=== PATIENT | male | born 1940 | race Caucasian/White ===

== ENCOUNTER → 2021-11-17 13:34 | Outpatient (CLI) | payer MEDICARE, OTHER, SELFPAY ==
--- NOTE | 2021-11-17 13:42 | DI.CT.S_ITS ---
PROCEDURE: CT LUMBAR SPINE WO CON INDICATIONS: Spinal stenosis, lumbar region without neurogenic TECHNIQUE: Noncontrast 3 mm thick sections acquired from the T12 level to the sacrum. Sagittal and coronal reformats were constructed. For radiation dose reduction, the following was used: automated exposure control. COMPARISON: [facility] [place], CR, XR LUMBAR SPINE 2 OR 3 VIEWS, 11/09/2021, 10:51. FINDINGS: Image quality: Excellent. Bones: There is normal bony alignment. No acute vertebral body compression fractures. No suspicious lytic or blastic bony lesions. No pars defects. Grade 1 retrolisthesis at L1-2 and grade 2 anterior listhesis at L4-5. L5 laminectomy with posterolateral fusion and posterior danay and screw instrumentation good position in at L5-S1. Grade 1 anterior spondylolisthesis present at L5-S1 Thin 1-2 mm lucency around the L5 pedicle screws noted. Well-healed interbody fusion at T10-T11. T12-L1: Disc space narrowing with posterior small osteophyte results in mild central and mild right foraminal stenosis. L1-L2: Disc space narrowing with vacuum disc phenomena and posterior osteophyte results in moderate central stenosis. Severe left and moderate to severe right foraminal stenosis. L2-L3: Disc space narrowing and circumferential disc bulge with hypertrophic facet joints and ligamentum flavum laxity results in moderate central stenosis. Moderate right and severe left foraminal stenosis. L3-L4: Disc space narrowing with posterior disc bulge and osteophyte combined with ligamentum flavum laxity results in moderate central stenosis. Severe left and moderate right foraminal stenosis. L4-L5: Disc space narrowing with vacuum disc phenomena and hypertrophic facet joints present. Decompressive laminectomy present. No central stenosis. Moderate right and severe left foraminal stenosis. L5-S1: Disc space narrowing with vacuum disc phenomena present. With no central stenosis. Moderate bilateral foraminal stenosis Soft tissues: No retroperitoneal masses or hematomas. Visualized aorta is normal in caliber. Atherosclerotic calcification in the abdominal aorta noted without evidence of aneurysm. Multiple diverticula arise from the sigmoid colon without diverticulitis IMPRESSION: 1. Multilevel degenerative disc disease and arthropathy results in varying degrees of central and foraminal stenosis including moderate central and severe left foraminal stenosis at L1-2. 2. L5 laminectomy and posterolateral fusion with danay and screw instrumentation at L5-S1. Periprosthetic lucency around both L5 pedicle screws suggests an element of loosening Approved by: Ric Browne M.D. on 11/17/2021 at 15:03
--- NOTE | 2021-11-17 13:43 | DI.MRI.S_ITS ---
PROCEDURE: MR LUMBAR SPINE WO CON INDICATIONS: Spinal stenosis, lumbar region without neurogenic TECHNIQUE: Noncontrast sagittal T1 spin echo and T2 fast echo, sagittal STIR, and T2 fast spin echo through the lumbar spine. In cases with scoliosis, additional coronal T2 fast spin echo may be performed. COMPARISON: None. FINDINGS: Image quality: Excellent. Alignment and Curvature: There is normal bony alignment. Bone Marrow: Postoperative changes of laminectomy and pedicular screw and danay fixation at L5-S1. Marrow is of normal overall signal. No acute vertebral body compression fractures. There is rightward curvature of the lumbar spine. Spinal Cord: Conus medullaris terminates at the L1 level. Visualized cord demonstrates normal signal and size. Paraspinous Soft Tissues: No paravertebral masses. Bilateral simple renal cysts. T12-L1: Central annular tear with a diffuse disc bulge. No foraminal or central canal stenosis. L1-L2: Loss of the disc space with a diffuse disc bulge and disc osteophytes with facet hypertrophy on the left cause moderate right and severe left foraminal stenosis. The central canal is patent. L2-L3: Diffuse disc bulge and disc osteophytes with facet hypertrophy on the left causes severe left and mild right foraminal stenosis. The central canal has moderate stenosis. 5 mm retrolisthesis at L2-3. L3-L4: Loss of the disc space with a diffuse disc bulge and disc osteophytes with bilateral facet hypertrophy causes severe left and moderate right foraminal stenosis. The central canal has moderate stenosis. L4-L5: Loss of the disc space with a diffuse disc bulge and disc osteophytes with left facet hypertrophy causes severe left and moderate right foraminal stenosis. The central canal is patent. 7 mm anterolisthesis of L4-5. L5-S1: Disc space narrowing with a diffuse disc bulge. The foramina and central canal are patent. L5-S1 is status post pedicular screw and danay fixation. IMPRESSION: 1. Multilevel lumbar spondylosis as above. 2. Moderate central canal stenosis at L2-3 and L3-4. 3. 7 mm anterolisthesis of L4-5. 5 mm retrolisthesis of L2-3. Dictated by: Bj Sarabia M.D. on 11/17/2021 at 14:53 Approved by: Bj Sarabia M.D. on 11/17/2021 at 15:05
== END ==
PROVIDERS: PCP Family Medicine; Referring Provider Orthopaedic Surgery Orthopaedic Surgery of the Spine; Visit Provider Orthopaedic Surgery Orthopaedic Surgery of the Spine
DX: M48.061 Spinal stenosis, lumbar region without neurogenic claudication (principal); M47.816 Spondylosis without myelopathy or radiculopathy, lumbar region; M43.16 Spondylolisthesis, lumbar region
CPT/HCPCS: 72131; 72148

== ENCOUNTER → 2021-12-06 13:46 | Outpatient (CLI) | payer MEDICARE, OTHER, SELFPAY | PROVIDERS: PCP Family Medicine; Referring Provider Orthopaedic Surgery Orthopaedic Surgery of the Spine; Visit Provider Orthopaedic Surgery Orthopaedic Surgery of the Spine | DX: M48.061 Spinal stenosis, lumbar region without neurogenic claudication (principal) ==

== ENCOUNTER → 2021-12-11 12:26 | Outpatient (CLI) | payer MEDICARE, OTHER, SELFPAY ==
[2021-12-11 13:28] LABS: Add Manual Diff / Slide Review NO; Basophils Absolute Auto 0 /uL (0-100); Basophils Percent Auto 0.4 % (0-2); Eosinophils Absolute Auto 100 /uL (0-450); Eosinophils Percent Auto 0.8 % (2-4); Hematocrit 33.6 % (41-53); Hemoglobin 11.3 g/dL (13.5-17.5); Lymphocytes Absolute Auto 600 /uL (1100-4500); Lymphocytes Percent Auto 7.9 % (25-40); Mean Corpuscular HGB Conc 33.8 % (30-36); Mean Corpuscular Hemoglobin 31.2 PG (26-34); Mean Corpuscular Volume 92.4 fL (80-100); Monocytes Absolute Auto 600 /uL (0-900); Monocytes Percent Auto 8.3 % (3-14); Neutrophils Absolute Auto 6200 /uL (1500-7000); Neutrophils Percent Auto 82.6 % (50-75); Platelet Count 301 X10^3/uL (150-400); Red Blood Cell Count 3.64 X10^6/uL (4.5-5.9); Red Cell Distribution Width 13.8 % (11.6-14.8); White Blood Cell Count 7.5 X10^3/uL (4.5-11.0)
[2021-12-11 13:35] LABS: Hemoglobin A1C% w Est Avg Glu 6.3 % (4.0-6.0)
[2021-12-11 13:39] LABS: BUN Creatinine Ratio 26.2 (6-22); Blood Urea Nitrogen 81 mg/dL (9-20); Calcium 9.4 mg/dL (8.4-10.2); Carbon Dioxide 38 mmol/L (22-32); Chloride 95 mmol/L (98-107); Estimated Glomerular Filt Rate 20 mL/min (>60); Glucose 94 mg/dL (80-110); HEMOLYSIS < 15 (0-50); Potassium 3.9 mmol/L (3.4-5.1); Sodium 138 mmol/L (137-145)
== END ==
PROVIDERS: PCP Family Medicine; Referring Provider Orthopaedic Surgery Orthopaedic Surgery of the Spine; Visit Provider Orthopaedic Surgery Orthopaedic Surgery of the Spine
DX: Z01.818 Encounter for other preprocedural examination (principal); R73.9 Hyperglycemia, unspecified; Z01.812 Encounter for preprocedural laboratory examination
CPT/HCPCS: 36415; 80048; 83036; 85025; 93005

== ENCOUNTER → 2021-12-25 09:10 | Outpatient (CLI) | payer MEDICARE, OTHER, SELFPAY ==
[2021-12-25 10:09] LABS: COVID19 -Nasal RAPID Negative (Negative)
[2021-12-25 10:59] LABS: BUN Creatinine Ratio 25.7 (6-22); Blood Urea Nitrogen 78 mg/dL (9-20); Calcium 9.9 mg/dL (8.4-10.2); Chloride 85 mmol/L (98-107); Estimated Glomerular Filt Rate 20 mL/min (>60); Glucose 105 mg/dL (80-110); HEMOLYSIS < 15 (0-50); Potassium 3.4 mmol/L (3.4-5.1); Sodium 137 mmol/L (137-145)
[2021-12-25 11:14] LABS: Carbon Dioxide 40 mmol/L (22-32)
== END ==
PROVIDERS: PCP Family Medicine; Referring Provider Orthopaedic Surgery Orthopaedic Surgery of the Spine; Visit Provider Orthopaedic Surgery Orthopaedic Surgery of the Spine
DX: Z20.822 Contact with and (suspected) exposure to COVID-19 (principal)
CPT/HCPCS: 36415; 80048; 87635

== ENCOUNTER → 2022-01-01 10:07 | Outpatient (CLI) | payer MEDICARE, OTHER, SELFPAY ==
[2022-01-01 11:46] LABS: Add Manual Diff / Slide Review NO; Basophils Absolute Auto 0 /uL (0-100); Basophils Percent Auto 0.3 % (0-2); Eosinophils Absolute Auto 0 /uL (0-450); Eosinophils Percent Auto 0.5 % (2-4); Hematocrit 36.4 % (41-53); Hemoglobin 12.3 g/dL (13.5-17.5); Lymphocytes Absolute Auto 500 /uL (1100-4500); Lymphocytes Percent Auto 8.1 % (25-40); Mean Corpuscular HGB Conc 33.8 % (30-36); Mean Corpuscular Hemoglobin 30.7 PG (26-34); Monocytes Absolute Auto 700 /uL (0-900); Monocytes Percent Auto 10.6 % (3-14); Neutrophils Absolute Auto 5100 /uL (1500-7000); Neutrophils Percent Auto 80.5 % (50-75); Platelet Count 303 X10^3/uL (150-400); Red Blood Cell Count 4.01 X10^6/uL (4.5-5.9); Red Cell Distribution Width 13.4 % (11.6-14.8); White Blood Cell Count 6.4 X10^3/uL (4.5-11.0)
[2022-01-01 12:21] LABS: Alanine Aminotransferase 16 IU/L (<50); Albumin 4.3 g/dL (3.5-5.0); Albumin Globulin Ratio 1.4 (1.0-2.8); Alkaline Phosphatase 63 U/L (38-126); Aspartate Aminotransferase 34 IU/L (17-59); BUN Creatinine Ratio 28.4 (6-22); Bilirubin Total 0.6 mg/dL (0.2-1.3); Blood Urea Nitrogen 90 mg/dL (9-20); Calcium 10.1 mg/dL (8.4-10.2); Chloride 91 mmol/L (98-107); Estimated Glomerular Filt Rate 19 mL/min (>60); Glucose 89 mg/dL (80-110); HEMOLYSIS < 15 (0-50); Magnesium 2.3 mg/dL (1.6-2.3); Phosphorous 4.4 mg/dL (2.3-3.7); Potassium 3.6 mmol/L (3.4-5.1); Sodium 140 mmol/L (137-145); Total Protein 7.3 g/dL (6.3-8.2)
[2022-01-01 12:34] LABS: Carbon Dioxide 39 mmol/L (22-32)
[2022-01-02 08:11] LABS: Parathyroid Hormone Int 146 pg/mL (15-65)
== END ==
PROVIDERS: PCP Family Medicine; Referring Provider Internal Medicine Nephrology; Visit Provider Internal Medicine Nephrology
DX: N18.9 Chronic kidney disease, unspecified (principal); I12.9 Hypertensive chronic kidney disease with stage 1 through stage 4 chronic kidney disease, or unspecified chronic kidney disease; N18.4 Chronic kidney disease, stage 4 (severe); E83.9 Disorder of mineral metabolism, unspecified; M89.9 Disorder of bone, unspecified; E83.42 Hypomagnesemia
CPT/HCPCS: 36415; 80053; 80069; 83735; 83970; 85025

== ENCOUNTER → 2022-01-09 11:20 | Outpatient (CLI) | payer MEDICARE, OTHER, SELFPAY ==
[2022-01-09 14:13] LABS: Alanine Aminotransferase 18 IU/L (<50); Albumin 4.1 g/dL (3.5-5.0); Albumin Globulin Ratio 1.3 (1.0-2.8); Alkaline Phosphatase 66 U/L (38-126); Aspartate Aminotransferase 35 IU/L (17-59); BUN Creatinine Ratio 24.3 (6-22); Bilirubin Total 0.5 mg/dL (0.2-1.3); Blood Urea Nitrogen 73 mg/dL (9-20); Calcium 9.7 mg/dL (8.4-10.2); Carbon Dioxide 37 mmol/L (22-32); Chloride 96 mmol/L (98-107); Estimated Glomerular Filt Rate 20 mL/min (>60); Globulin 3.1 g/dL (1.7-4.1); Glucose 87 mg/dL (80-110); HEMOLYSIS < 15 (0-50); Potassium 3.7 mmol/L (3.4-5.1); Sodium 140 mmol/L (137-145); Total Protein 7.2 g/dL (6.3-8.2)
== END ==
PROVIDERS: PCP Family Medicine; Referring Provider Internal Medicine Nephrology; Visit Provider Internal Medicine Nephrology
DX: N18.4 Chronic kidney disease, stage 4 (severe) (principal)
CPT/HCPCS: 36415; 80053

== ENCOUNTER → 2022-01-16 11:05 | Outpatient (CLI) | payer MEDICARE, OTHER, SELFPAY ==
[2022-01-16 12:20] LABS: COVID-19 CEPHEID PCR (VTM/NP) Negative (Negative)
== END ==
PROVIDERS: PCP Family Medicine; Referring Provider Orthopaedic Surgery Orthopaedic Surgery of the Spine; Visit Provider Orthopaedic Surgery Orthopaedic Surgery of the Spine
DX: Z20.822 Contact with and (suspected) exposure to COVID-19 (principal)
CPT/HCPCS: C9803; U0003; U0005

== ENCOUNTER 2022-01-18 07:47 | Inpatient (IN) | payer MEDICARE, OTHER, SELFPAY ==
[2022-01-16 13:28] VITALS: BMI 28.0
[2022-01-18] VITALS (18 sets, daily range): BP systolic 134–172; BP diastolic 77–111; PULSE 56–88; RESP 8–21; TEMP 36–36.8; O2SAT 90–99; BMI 28.0; BMI 29.6
[2022-01-18] MEDS: LACTATED RINGERS 1,000 ML 42 ML IV (08:51)
--- NOTE | 2022-01-18 09:26 | PM.HP.1 ---
History of Present Illness History of Present Illness Date Patient Seen: 01/18/22 Time Patient Seen: 09:27 Date of Onset of Symptoms: 12/28/14 Chief complaint: TLIF Narrative: Mr. Dong is a 81 yo M with chronic back pain and worsening bilateral leg pain and weakness. He has spinal stenosis, scoliosis, spondylolisthesis and history of lumbar fusion with worsening symptoms. After failing years of conservative care and with progressive worsening symptoms, patient elected to proceed with surgical treatment. Patient History Medical History Acid reflux Arthritis BPH (benign prostatic hyperplasia) Chronic kidney disease, stage 4 (severe) DJD (degenerative joint disease) Dyslipidemia Easy bruisability Eczema Enlarged prostate Hematuria HTN (hypertension) Hyperthyroidism Loosening of hardware in spine Lumbar radiculopathy Onychomycosis Postherpetic neuralgia Sciatic leg pain Shingles Shortness of breath Sinusitis Spinal stenosis Water retention Surgical History (Updated 12/19/21 @ 14:34 by Rupinder Caba RN) Hx of bilateral cataract extraction Hx of hernia repair (09/2015) Hx of laminectomy (~2011) Hx of tonsillectomy S/P lumbar spinal fusion (2016) [place] teeth extracted Family & Social History Social History: household members spouse Prior Living Arrangements House Safety & Behavioral: Feels Safe in Current Yes Environment Been Physically Hurt or No Threatened By a Person Suicidal Ideation Description None Suicide Plan Description No Plan Tobacco & Substance use: Smoking Status Former smoker alcohol intake current alcohol intake frequency 0-2 drinks per day Substance Use Type does not use Meds Home Medications and Allergies Home Medications Medication Instructions Recorded Confirmed Type alfuzosin 10 mg tablet,extended 10 mg PO QPM 12/19/21 01/18/22 History release 24 hr dexamethasone 0.75 mg tablet 0.75 mg PO BID 12/19/21 01/18/22 History dutasteride 0.5 mg capsule 0.5 mg PO QPM 12/19/21 01/18/22 History (Avodart) furosemide 80 mg tablet 80 mg PO BID 12/19/21 01/18/22 History hydroxyzine HCl 25 mg tablet 25 mg PO BID Muscle cramps 12/19/21 01/18/22 History metolazone 2.5 mg tablet 2.5 mg PO DAILY PRN Increased 12/19/21 01/18/22 History swellling-only for 3 days metoprolol succinate 25 mg 25 mg PO QPM 12/19/21 01/18/22 History tablet,extended release 24 hr oxycodone 5 mg tablet 5 mg PO TID PRN Pain 12/19/21 01/18/22 History potassium 99 mg tablet 99 mg PO DAILY 12/19/21 01/18/22 History pravastatin 20 mg tablet 20 mg PO BEDTIME 12/19/21 01/18/22 History zolpidem 5 mg tablet 5 mg PO BEDTIME PRN Sleep 12/19/21 01/18/22 History Allergies Allergy/AdvReac Type Severity Reaction Status Date / Time Sulfa (Sulfonamide Allergy Childhood-unknown Verified 01/18/22 08:42 Antibiotics) reaction garlic AdvReac Severe Gastrointestinal Verified 01/18/22 08:42 Upset Review of Systems Review of Systems ROS: Yes All systems reviewed with the patient and are negative except as otherwise documented Exam Vital Signs (past 8 hours): - 01/18/22 08:28 Temperature 98.2 F Pulse Rate 56 L Respiratory Rate 18 Blood Pressure 160/85 H Pulse Oximetry 99 Oxygen Delivery Method Room Air Oxygen Delivery Method Room Air Back/Spine/Pelvis Back: back tenderness Thoracic/Lumbar Spine: thoraco-lumbar ROM limited, scoliosis, lumbar spinal tenderness and straight leg raise positive Neuro Other: + straight leg raise to RLE, sensibility decreased to bilateral L4, L5 dermatome, motor strength 4/5 in bilateral quadriceps, TA, EHL. Assessment & Plan Assessment & Plan narrative: Risks for surgery include but not limited to bleeding, infection, nerve/dura/bladder/bowel/blood vessel injury, need for additional procedure, persisting pain, even . Patient has chronic renal insufficiency, surgical risks also include kidney injury and need for dialysis due to injury to the kidneys. Patient understands the risks and would like to proceed with surgery. I scheduled him for L3-S1 TLIF, L5-S1 hardware removal and L3-S1 PSF with instrumentation using robotic navigation. Time Spent With Patient Critical Care time: I spent a total of [] minutes of critical care time on this patient's care today; this time is exclusive of procedural time.
[2022-01-18] MEDS: CEFAZOLIN 2 GM/20 ML SYRINGE IV ×3 (11:07→22:27)
--- NOTE | 2022-01-18 11:15 | SUR.OPER ---
Prone on spine table, head in foam head support, padded chest and pelvic supports, gel pad at knees, lower legs supported by pillows; nipples, genitalia and toes free of pressure, arms secured on foam padded arm boards at <90 degrees abduction. Tape over blanket at thigh secured to table.
[2022-01-18] MEDS: ACETAMINOPHEN IV 1,000 MG/100 ML VIAL 400 MG IV (15:35)
[2022-01-18] MEDS: BUPIVACAINE 0.25% (PF) 30 ML, EPINEPHrine 0.3 MG INJ (15:45)
--- NOTE | 2022-01-18 15:47 | DI.RAD.S_ITS ---
PROCEDURE: XR LUMBAR SPINE 2-3V INDICATIONS: L3-4, L4-5, L5-S1 TLIF TECHNIQUE: 3 intraoperative fluoroscopic spot films were obtained COMPARISON: None. FINDINGS: Low resolution intraoperative fluoroscopic spot films show instrumentation from L3 through S1 as well as interbody fusion grafts grossly in appropriate position IMPRESSION: Fluoroscopic guidance Approved by: Ric Browne M.D. on 01/18/2022 at 16:21
[2022-01-18] MEDS: BUPIVACAINE LIPOSOME 266 MG/20 ML VIAL INJ (15:50)
--- NOTE | 2022-01-18 16:01 | PM.OP.1 ---
Operative Date/Time/Diagnoses Date of procedure: 01/18/22 Time of procedure: 10:40 Pre-op diagnosis: 1. L3-4, L4-5, L5-S1 spinal stenosis 2. Lumbar spondylolisthesis 3. History of L5-S1 fusion with pseudoarthrosis 4. Lumbar scoliosis Post-op diagnosis: same Procedure & Clinicians Procedure: 1. L3-4, L4-5, L5-S1 posterolateral and posterior interbody fusion 2. L3-4,L4-5, L5-S1 posterior interbody cage placement 3. L5-S1 posterior non-segmental instrumentation removal 4. L5-S1 revision laminectomy with exploration of fusion 5. L3-4, L4-5, L5-S1 posterior segmental instrumentation with pedicle screw placement 6. [place] of bone marrow from iliac crest through a separate incision 7. Utilization of microsurgical technique and operating microscope 8. Utizlization of robotic navigation ([employer]) Same procedure as scheduled: Yes Indications: Patient has been having chronic back pain and worsening lumbar radiculopathy. Patient had previous L5-S1 laminectomy and fusion in 2017 and was confirmed to have a pseudoarthrosis at this level with recent imaging with no signs of fusion at this level. Patient failed multiple conservative management with worsening pain weakness and numbness in his lower extremity. Patient has been having difficulty performing activity of daily living. After discussing risks benefits of treatment options, patient elected proceed with surgery. Surgeon: Cherelle Angela Sales Service Coordinator: Bijal Lutz Click Yes if Unassisted: No Anesthesia Type: General Operative Notes Closure Type: primary Specimen(s): none sent Prosthetic devices, grafts, tissues, transplants, or devices: Globus CREO MIS screws, Rise cages Estimated Blood Loss (mL): 250 Procedure in detail: Patient was seen in the preoperative area. Risks and benefits of the surgery was discussed with the patient. Informed consent was obtained from the patient and placed in the chart. Surgical site was marked. Patient was taken to the operative room. General anesthesia was administered. Prophylactic antibiotic was given to the patient less than 30 min before the incision was made. Patient was placed into a prone position on the Aiden table. Patient's back was then prepped and draped in the sterile fashion. Time-out was performed at this time. After patient was prepped and draped, patient's PSIS was palpated and marked bilaterally. Small 1 cm incision was made over the PSIS for placement of the reference probes. Two trocar was placed into the PSIS 1 on each side. The reference probe was attached to the trocar of the reference apparatus. At this time the C-arm imaging was used to confirm AP and lateral of L3, L4, L5, and S1 vertebrae and merged the C-arm imaging using the Ansira robotic navigation system with the CT of the lumbar spine. After successful merging was completed and confirmed, skin marker was used to lara out the skin incision using the Ansira robotic arm. Bilateral incision was made at this time. Using patient's previous scar incision was made over the L3, L4, L5-S1 interval on the left side. Fascia was incised in line with skin incision. Patient's previously placed hardware over the L5-S1 level was identified by dissecting down to the level the hardware using a Bovie and a Victoria. The locking caps which was removed using Little Pimus screwdriver. The locking danay was then removed from the tulips of the pedicle screws using a Nichole. The pedicle screws were then removed using the screwdriver. The screws were found to have poor purchase due to hardware loosening and indicating pseudoarthrosis at L5-S1 level. Pre templated trajectory was used and guided using the Ansira robotic navigation system for left L3, L4, L5 and S1 pedicle screws and right L3, L4 , L5 and S1 pedicle screws placement. This was done by using the robotic arm to guide the high-speed bur to make a cortical entry point. Next a drill was placed also using the robotic arm and guided using the navigation system drilling partially through bilateral L3, L4, L5, S1 pedicles. Next L3, L4, L5, S1 pedicle screws it was pre templated and measured was placed onto the power interstate bus driver and inserted into the pedicles bilaterally. After all 8 screws were placed C-arm imaging was taken of both AP and lateral to confirm the placement. Excellent placement of the screws were confirmed and a matched precisely with the pre planned screw placement using the navigation system. MARs retractor was inserted using Ansira rossi guidence. [employer] MARS retractors was placed inside the incision and docked onto the L3 L4 and L5 lamina. Using microsurgical technique and operating microscope, a L3 L4, and L5 laminectomy and L3-4, L4-5 L5-S1 facetectomy was performed using a Kerrison rongeur. Patient was found have severe lateral recess and neural foramen stenosis which was fully decompressed after the laminectomy facetectomy. More than 75% of the facets were removed during the process of decompression rendering L3-4, L4-5 L5-S1 level grossly unstable and required a fusion procedure at the same time. The disc space at L3-4, L4-5 L5-S1 was identified, and a total diskectomy was performed at L3-4, L4-5 L5-S1 level. The endplates were decorticated using a rasp and shaver. The total diskectomy and decortication was performed at L3-4, L4-5 L5-S1 level in order to to accomplish a L3-4, L4-5 L5-S1 fusion. The local bone from the laminectomy and facetectomy was saved for local bone grafting. After the total diskectomy and decortication was completed, Trifecta bone graft material was combined with local bone that was harvested earlier. At this time, a separate skin is incision was made over the iliac crest. A Jamshidi needle was inserted into the iliac crest through a separate skin incision. 5 cc of bone marrow aspiration was obtained through the separate skin incision using a Jamshidi needle from the iliac crest. The bone marrow aspiration was combined with local bone and the Trifecta bone grafting material. The bone grafting material was placed into the L3-4, L4-5 L5-S1 interbody space along with a expandable cage. The cages were expanded to its maximum height using the torque limiting screwdriver. The disc preparation as well as the cage insertion were also performed under navigation guidance. After the cage was placed, AP and lateral C-arm imaging was taken to confirm placement of the cage and excellent position was confirmed. The fusion mass on the right side of L4-5 was exposed by performing a right-sided hemilaminectomy at L4-5 level. The hemilaminectomy was performed using the Kerrison rongeur to undercut the lamina as well removing additional epidural scar tissue for purpose of decompressing the epidural space. The fusion mass was explored and was found have visible motion indicating pseudoarthrosis. Globus MARS retractor was inserted and docked onto the L3-4, L4-5 L5-S1 posterolateral gutter. Using the power drill, posterior-lateral decortication was performed at L3-4, L4-5 L5-S1 level until bleeding cortical bone was identified. The remaining bone grafting material was placed into the L3-4, L4-5 L5-S1 posterior lateral gutter he order to accomplish posterolateral fusion at the L3-4, L4-5 L5-S1 level. At this time the tulips were attached to the L3, L4-L5 and S1 pedicle screw shanks. This was done in L3, L4-L5 S1 pedicles bilaterally. After measuring the length of the rods, they were inserted into the tulips of the pedicle screws and locked in place using locking caps and torque limiting screwdriver bilaterally. Total 8 caps and 2 titanium rods was used in order to complete the posterior instrumentation construct. After all the hardware was placed, and confirmed with AP and lateral C-arm imaging, the wound was then irrigated with sterile normal saline and packed with Ray-Berna gauze for 3 min to accomplish hemostasis. After the gauze was removed the deep fascia was closed with #1 Vicryl suture. The subcutaneous layer was closed with 2-0 Vicryl. The skin was closed with skin nia. Patient tolerated the procedure well. There were no complications. Neuro monitoring system was used to monitor patient's neurologic status throughout entire procedure. There was no disturbance of the neural monitoring signals throughout the case. Complications: none Post-operative Condition: stable Disposition: PACU Plan for aftercare: Admit to inpatient hospital
[2022-01-18] MEDS: LORazepam 2 MG/ML INJ 0.25 MG IV ×2 (16:23→16:38)
[2022-01-18] MEDS: OXYCODONE IR 5 MG TABLET PO ×2 (16:23→16:47)
[2022-01-18] MEDS: hydrOXYzine 50 MG/ML INJ 25 MG IM (16:26)
--- NOTE | 2022-01-18 18:34 | PC.NURSE ---
Pt to room 209 via bed from PACU. Pt is sleepy but responds appropriately to questions. Denies pain, nausea, or shortness of breath, numbness, or chest pain. BLE elevated on 2 pillows with weepy sores visible. Spouse is at the bedside. Howe in place and draining clear yellow urine. O2 sat 97 on 3L O2. Pt and Spouse oriented to room, call light, bed controls and tv controls. SCD's on and running. Bed alarm on for safety. OR/MOBILE GAME ENGINEER who brought Pt to room 209 stated a hospitalist consult had been ordered - notified MOBILE GAME ENGINEER that consult was placed under Prachi Fuller rather than Dr. Morenita Mae and she stated she would notify the Ortho PA who is still in surgery.
[2022-01-18] MEDS: dexAMETHasone 1 MG TABLET 0.75 MG PO (21:14)
[2022-01-18] MEDS: SENNOSIDES 8.6 MG TABLET 17.2 MG PO (21:14)
[2022-01-18] MEDS: DOCUSATE 100 MG CAPSULE PO (21:16)
[2022-01-18] MEDS: hydrOXYzine pamoate 25 MG CAPSULE PO (21:16)
[2022-01-18] MEDS: PRAVASTATIN 20 MG TABLET PO (21:17)
[2022-01-18] MEDS: DUTASTERIDE 0.5 MG CAPSULE PO (21:17)
[2022-01-18 21:22] LABS: Add Manual Diff / Slide Review NO; Basophils Absolute Auto 0 /uL (0-100); Basophils Percent Auto 0.2 % (0-2); Eosinophils Absolute Auto 0 /uL (0-450); Hematocrit 32.9 % (41-53); Hemoglobin 11.1 g/dL (13.5-17.5); Lymphocytes Absolute Auto 300 /uL (1100-4500); Mean Corpuscular HGB Conc 33.9 % (30-36); Mean Corpuscular Hemoglobin 30.5 PG (26-34); Mean Corpuscular Volume 89.9 fL (80-100); Monocytes Absolute Auto 600 /uL (0-900); Monocytes Percent Auto 5.2 % (3-14); Neutrophils Absolute Auto 10200 /uL (1500-7000); Neutrophils Percent Auto 91.6 % (50-75); Platelet Count 277 X10^3/uL (150-400); Red Blood Cell Count 3.66 X10^6/uL (4.5-5.9); White Blood Cell Count 11.2 X10^3/uL (4.5-11.0)
[2022-01-18 21:25] LABS: Alanine Aminotransferase 20 IU/L (<50); Albumin 3.6 g/dL (3.5-5.0); Albumin Globulin Ratio 1.3 (1.0-2.8); Alkaline Phosphatase 61 U/L (38-126); Aspartate Aminotransferase 40 IU/L (17-59); BUN Creatinine Ratio 23.5 (6-22); Bilirubin Total 0.4 mg/dL (0.2-1.3); Blood Urea Nitrogen 65 mg/dL (9-20); Calcium 9.3 mg/dL (8.4-10.2); Carbon Dioxide 29 mmol/L (22-32); Chloride 100 mmol/L (98-107); Estimated Glomerular Filt Rate 23 mL/min (>60); Globulin 2.8 g/dL (1.7-4.1); Glucose 141 mg/dL (80-110); HEMOLYSIS < 15 (0-50); Potassium 4.3 mmol/L (3.4-5.1); Sodium 140 mmol/L (137-145); Total Protein 6.4 g/dL (6.3-8.2)
[2022-01-18 21:26] LABS: Magnesium 2.2 mg/dL (1.6-2.3)
[2022-01-18] MEDS: METOPROLOL ER 25 MG TABLET PO (21:26)
[2022-01-18 21:34] LABS: NT-proBNP (BNP-Adult 18+) 745 pg/mL (<450)
--- NOTE | 2022-01-18 22:13 | PC.NURSE ---
Spoke with Katina Tipton, given orders to hold Furosemide and NS fluids. Will continue to monitor pt.
[2022-01-18] MEDS: OXYCODONE IR 10 MG TABLET PO (22:27)
[2022-01-19] VITALS (7 sets, daily range): BP systolic 137–163; BP diastolic 78–98; PULSE 54–76; RESP 14–18; TEMP 36.3–37.1; O2SAT 93–99
[2022-01-19] MEDS: SODIUM CHLORIDE 0.9% 1,000 ML 60 ML IV (00:33)
[2022-01-19] MEDS: OXYCODONE IR 5 MG TABLET PO (01:55)
[2022-01-19] MEDS: ACETAMINOPHEN 325 MG TABLET 650 MG PO ×3 (01:55→16:33)
--- NOTE | 2022-01-19 04:53 | P.CONS_ITS ---
History of Present Illness Consult details Date Patient Seen: 01/18/22 Time Patient Seen: 21:04 Chief complaint: TLIF Narrative: David Dong is a 81-year-old male with a history of CKD stage IV, hypertension, BPH, and dyslipidemia, who is a patient of Dr. Oro orthopedics and was taken to the OR today for an?L3-S1 TLIF, L5-S1 hardware removal and L3-S1 PSF with i nstrumentation using robotic navigation due to chronic back pain and worsening bilateral leg pain and weakness , with a hx of spinal stenosis, scoliosis, spondylolisthesis and history of lumbar fusion with worsening symptoms. And after failing years of conservative care and with progressive worsening symptoms. Dr. Oro kindly requested that the hospitalist Service consult regarding the patient's CKD and other medical issues. Upon consult patient is back from the OR he is alert and orientated in mild discomfort. Vitals temp 97?, BP 146/87, HR 74, RR 12, O2 saturation 98% on room air. Ordered labs for evaluation: CBC, CMP, BNP. It is noted that patient has nonpitting +3 edema to bilateral feet, which patient states is his baseline. Will evaluate labs and determine medication plan of care. Meds Home Medications and Allergies Home Medications Medication Instructions Recorded Confirmed Type alfuzosin 10 mg tablet,extended 10 mg PO QPM 12/19/21 01/18/22 History release 24 hr dexamethasone 0.75 mg tablet 0.75 mg PO BID 12/19/21 01/18/22 History dutasteride 0.5 mg capsule 0.5 mg PO QPM 12/19/21 01/18/22 History (Avodart) furosemide 80 mg tablet 80 mg PO BID 12/19/21 01/18/22 History hydroxyzine HCl 25 mg tablet 25 mg PO BID Muscle cramps 12/19/21 01/18/22 History metolazone 2.5 mg tablet 2.5 mg PO DAILY PRN Increased 12/19/21 01/18/22 History swellling-only for 3 days metoprolol succinate 25 mg 25 mg PO QPM 12/19/21 01/18/22 History tablet,extended release 24 hr oxycodone 5 mg tablet 5 mg PO TID PRN Pain 12/19/21 01/18/22 History potassium 99 mg tablet 99 mg PO DAILY 12/19/21 01/18/22 History pravastatin 20 mg tablet 20 mg PO BEDTIME 12/19/21 01/18/22 History zolpidem 5 mg tablet 5 mg PO BEDTIME PRN Sleep 12/19/21 01/18/22 History Allergies Allergy/AdvReac Type Severity Reaction Status Date / Time Sulfa (Sulfonamide Allergy Childhood-unknown Verified 01/18/22 08:42 Antibiotics) reaction garlic AdvReac Severe Gastrointestinal Verified 01/18/22 08:42 Upset Review of Systems Review of Systems Narrative: All 12 point systems reviewed with the patient and are negative except otherwise documented. Exam Vital Signs (past 8 hours): - 01/18/22 21:00 01/18/22 21:26 01/18/22 22:25 Temperature Pulse Rate 80 77 79 Respiratory Rate 14 Blood Pressure 134/88 135/81 146/87 H Pulse Oximetry 95 Oxygen Flow Rate 3 01/18/22 22:05 01/19/22 01:30 Temperature 97.6 F Pulse Rate 88 71 Respiratory Rate 14 Blood Pressure 146/77 H 148/91 H Pulse Oximetry 97 Oxygen Flow Rate 3 Oxygen Delivery Method Nasal Cannula Oxygen Flow Rate 3 Narrative Exam Narrative: General: Patient is a well-developed, well-nourished male in no acute distress at this time. HEENT: Normocephalic, atraumatic, extraocular muscles intact, oral pharynx is clear and mucous membranes are moist. Neck is supple and symmetric, trachea is midline, no adenopathy, no thyroid enlargement, nontender, no masses palpated. Negative for JVD Chest: Normal AP diameter and contour without kyphoscoliosis, no nasal flaring, retractions, or tachypneic labored Lungs: Auscultation of all lung [place]ita are clear without adventitious sounds, wheezes, rhonchi, or rales. Cardio: S1 & S2 with regular rate and rhythm without murmur, rubs, or gallops, no carotid bruit, no cardiac pulsations present. Abdomen: Soft nontender, negative for organomegaly, or masses. Bowel sounds are present in all 4 quadrants without guarding or rebound, no CVA tenderness. Howe Cath in place. Musculoskeletal: Post op spinal surgery unable to asses Range of motion or function, no deformity, crepitus, effusions, cyanosis, clubbing present. Positive +3 nonpitting, equal edema to bilateral feet, intact radial and pedal pulses are normal. Skin: Warm dry and intact without rashes, ulcerations or petechiae. Neuro: Alert and orientated x3, sensation to touch intact, no gross deficits noted of cranial nerves. Psych: Patient has a well-kept appearance, appropriate affect, mental status attitude thought context and judgment are appropriate for age. Objective Labs Result Diagrams: 01/18/22 21:10 01/18/22 20:58 Labs: Laboratory Results - last 24 hr 01/18/22 01/18/22 01/18/22 20:58 20:58 20:58 WBC RBC Hgb Hct MCV MCH MCHC RDW Plt Count Neut % (Auto) Lymph % (Auto) [place] % (Auto) Eos % (Auto) Baso % (Auto) Neut # (Auto) Lymph # (Auto) [place] # (Auto) Eos # (Auto) Baso # (Auto) Sodium 140 Potassium 4.3 Chloride 100 Carbon Dioxide 29 BUN Cancelled 65 H Creatinine Cancelled 2.77 H Estimated GFR Cancelled 23 L BUN/Creatinine Ratio Cancelled 23.5 H Glucose 141 H Calcium 9.3 Magnesium 2.2 Total Bilirubin 0.4 AST 40 ALT 20 Alkaline Phosphatase 61 NT-Pro-B Natriuret Pep Total Protein 6.4 Albumin 3.6 Globulin 2.8 Albumin/Globulin Ratio 1.3 01/18/22 01/18/22 20:58 21:10 WBC 11.2 H RBC 3.66 L Hgb 11.1 L Hct 32.9 L MCV 89.9 MCH 30.5 MCHC 33.9 RDW 13.0 Plt Count 277 Neut % (Auto) 91.6 H Lymph % (Auto) 3.0 L [place] % (Auto) 5.2 Eos % (Auto) 0.0 L Baso % (Auto) 0.2 Neut # (Auto) 56467 H Lymph # (Auto) 300 L [place] # (Auto) 600 Eos # (Auto) 0 Baso # (Auto) 0 Sodium Potassium Chloride Carbon Dioxide BUN Creatinine Estimated GFR BUN/Creatinine Ratio Glucose Calcium Magnesium Total Bilirubin AST ALT Alkaline Phosphatase NT-Pro-B Natriuret Pep 745 H Total Protein Albumin Globulin Albumin/Globulin Ratio [facility] Medical History Acid reflux Arthritis BPH (benign prostatic hyperplasia) Chronic kidney disease, stage 4 (severe) DJD (degenerative joint disease) Dyslipidemia Easy bruisability Eczema Enlarged prostate Hematuria HTN (hypertension) Hyperthyroidism Loosening of hardware in spine Lumbar radiculopathy Onychomycosis Postherpetic neuralgia Sciatic leg pain Shingles Shortness of breath Sinusitis Spinal stenosis Water retention Surgical History Hx of bilateral cataract extraction Hx of hernia repair (09/2015) Hx of laminectomy (~2011) Hx of tonsillectomy S/P lumbar spinal fusion (2016) [place] teeth extracted Family History (Updated 01/19/22 @ 05:02 by WOO MackeyBOUBACAR) Father Cancer Mother Congestive heart failure Social History household members: spouse Tobacco & Substance Use Smoking Status: Former smoker alcohol intake: current Assessment & Plan Assessment & Plan narrative: David Dong is a 81-year-old male with a history of CKD stage IV, hypertension, BPH, and dyslipidemia, spinal stenosis, scoliosis, spondylolisthesis who is a patient of Dr. Oro and was taken to the OR today . 1.Chronic back pain and worsening bilateral leg pain and weakness, due to spinal stenosis, scoliosis, spondylolisthesis, acute on chronic, present on admission -managed by Dr. Angela -?L3-S1 TLIF, L5-S1 hardware removal and L3-S1 PSF with instrumentation using robotic navigation-Per Dr. Angela 2. CKD stage 4, chronic, present on admission -BUN 65, creatinine 2.77, glucose 141, GFR 23 -12/11/2021-01/09/2002: BUN 73-90, [employer] 3.01-3.17, GFR 19-20 -held patient's Lasix tonight. continue Zaroxolyn -NS at 60 cc/HR 3. Hypertension, acute on chronic, present on admission -continue metoprolol 4. Dyslipidemia, chronic, present on admission -continue pravastatin 5. BPH, chronic, present on admission continue -continue Avodart & alfuzosin Code status:Full Surrogate decision maker: Nader Dong COVID PCR:Negative DVT/VTE prophylaxis:managed by Dr. Oro Disposition:Consult I have utilized all available immediate resources to obtain, update, or review the patient's current medications. I confirmed that the patient's advanced care plan is present, Code status is documented and/or surrogate decision maker is listed in the patient's medical record. Time Spent With Patient Critical Care time: I spent a total of [] minutes of critical care time on this patient's care today; this time is exclusive of procedural time.
[2022-01-19] MEDS: CEFAZOLIN 2 GM/20 ML SYRINGE IV (06:33)
[2022-01-19 07:07] LABS: Hematocrit 31.5 % (41-53); Hemoglobin 10.8 g/dL (13.5-17.5)
[2022-01-19 07:23] LABS: BUN Creatinine Ratio 23.8 (6-22); Blood Urea Nitrogen 62 mg/dL (9-20); Calcium 9.2 mg/dL (8.4-10.2); Carbon Dioxide 32 mmol/L (22-32); Chloride 100 mmol/L (98-107); Estimated Glomerular Filt Rate 24 mL/min (>60); Glucose 119 mg/dL (80-110); HEMOLYSIS < 15 (0-50); Potassium 4.1 mmol/L (3.4-5.1); Sodium 138 mmol/L (137-145)
--- NOTE | 2022-01-19 08:01 | PM.PNPO.1 ---
Subjective Subjective Date Patient Seen: 01/19/22 Time Patient Seen: 08:01 Interval history: Mr Dong is sitting up in bed, complains of moderate pain about his incisions but is otherwise feeling well. Denies leg pain. Has not been OOB yet. Jay still in. Exam Vital Signs (past 8 hours): - 01/19/22 01:30 01/19/22 05:30 Temperature 97.6 F 97.8 F Pulse Rate 71 62 Respiratory Rate 14 14 Blood Pressure 148/91 H 155/90 H Pulse Oximetry 97 98 Oxygen Flow Rate 3 0 Oxygen Delivery Method Nasal Cannula Oxygen Flow Rate 0 Narrative Exam Narrative: 5/5 strength in hip flexors, quadriceps, hamstrings, DF, PF, EHL bilaterally. Sensation to light touch intact throughout BLE. Lower legs grossly edematous, but there is no evidence of skin breakdown. Low back gauze dressing is CDI. Objective Labs Result Diagrams: 01/19/22 06:47 01/19/22 06:47 Labs: Laboratory Results - last 24 hr 01/18/22 01/18/22 01/18/22 20:58 20:58 20:58 WBC RBC Hgb Hct MCV MCH MCHC RDW Plt Count Neut % (Auto) Lymph % (Auto) [place] % (Auto) Eos % (Auto) Baso % (Auto) Neut # (Auto) Lymph # (Auto) [place] # (Auto) Eos # (Auto) Baso # (Auto) Sodium 140 Potassium 4.3 Chloride 100 Carbon Dioxide 29 BUN Cancelled 65 H Creatinine Cancelled 2.77 H Estimated GFR Cancelled 23 L BUN/Creatinine Ratio Cancelled 23.5 H Glucose 141 H Calcium 9.3 Magnesium 2.2 Total Bilirubin 0.4 AST 40 ALT 20 Alkaline Phosphatase 61 NT-Pro-B Natriuret Pep Total Protein 6.4 Albumin 3.6 Globulin 2.8 Albumin/Globulin Ratio 1.3 01/18/22 01/18/22 01/19/22 20:58 21:10 06:47 WBC 11.2 H RBC 3.66 L Hgb 11.1 L 10.8 L Hct 32.9 L 31.5 L MCV 89.9 MCH 30.5 MCHC 33.9 RDW 13.0 Plt Count 277 Neut % (Auto) 91.6 H Lymph % (Auto) 3.0 L [place] % (Auto) 5.2 Eos % (Auto) 0.0 L Baso % (Auto) 0.2 Neut # (Auto) 89897 H Lymph # (Auto) 300 L [place] # (Auto) 600 Eos # (Auto) 0 Baso # (Auto) 0 Sodium Potassium Chloride Carbon Dioxide BUN Creatinine Estimated GFR BUN/Creatinine Ratio Glucose Calcium Magnesium Total Bilirubin AST ALT Alkaline Phosphatase NT-Pro-B Natriuret Pep 745 H Total Protein Albumin Globulin Albumin/Globulin Ratio 01/19/22 06:47 WBC RBC Hgb Hct MCV MCH MCHC RDW Plt Count Neut % (Auto) Lymph % (Auto) [place] % (Auto) Eos % (Auto) Baso % (Auto) Neut # (Auto) Lymph # (Auto) [place] # (Auto) Eos # (Auto) Baso # (Auto) Sodium 138 Potassium 4.1 Chloride 100 Carbon Dioxide 32 BUN 62 H Creatinine 2.60 H Estimated GFR 24 L BUN/Creatinine Ratio 23.8 H Glucose 119 H Calcium 9.2 Magnesium Total Bilirubin AST ALT Alkaline Phosphatase NT-Pro-B Natriuret Pep Total Protein Albumin Globulin Albumin/Globulin Ratio PFSH Medical History (Updated 01/19/22 @ 10:13 by Bijal Lutz PA-C) Acid reflux Arthritis BPH (benign prostatic hyperplasia) Chronic kidney disease, stage 4 (severe) DJD (degenerative joint disease) Dyslipidemia Easy bruisability Eczema Enlarged prostate Hematuria HTN (hypertension) Hyperthyroidism Loosening of hardware in spine Lumbar radiculopathy Onychomycosis Postherpetic neuralgia Sciatic leg pain Shingles Shortness of breath Sinusitis Spinal stenosis Water retention Surgical History (Updated 01/19/22 @ 10:13 by Bijal Lutz PA-C) Hx of bilateral cataract extraction Hx of hernia repair (09/2015) Hx of laminectomy (~2011) Hx of tonsillectomy S/P lumbar spinal fusion (2016) [place] teeth extracted Family History (Updated 01/19/22 @ 05:02 by TAMANNA Mackey) Father Cancer Mother Congestive heart failure Social History household members: spouse Smoking Status: Former smoker alcohol intake: current Assessment & Plan Post-op Assessment and plan (1) S/P lumbar spinal fusion: Assessment and Plan narrative: Continue current pain medication regimen. D/c jay. PT today. Hope to discharge in next 1-2 days home with spouse. (2) Chronic kidney disease, stage 4 (severe): Assessment and Plan narrative: Appreciate hospitalist help with patient management. Postoperative Procedures: Procedures Operation Date: 01/18/22 09:15 Actual Procedure Side Surgeon p L3-4, L4-5, L5-S1 TLIF w. posterior instrumentation, L5-S1 HWR -Robot Cherelle Angela MD Postoperative day: 1 Quality VTE Deep Vein Thrombosis/Pulmonary Embolism Present on Admission: No
--- NOTE | 2022-01-19 08:50 | PT.IIE ---
Current Diagnoses Spondylolisthesis, lumbar region (01/18/22) Chronic kidney disease, stage 4 (severe) (01/18/22) Other mechanical complication of other internal orthopedic devices, implants and grafts, initial encounter (01/18/22) Arthrodesis status (01/18/22) Surgery Performed Operation Date: 01/18/22 09:15 Actual Procedures p L3-4, L4-5, L5-S1 TLIF w. posterior instrumentation, L5-S1 HWR -Reji - Cherelle Angela MD Surgical History (Last Updated 01/19/22 @ 10:13 by Bijal Lutz PA-C) Hx of bilateral cataract extraction Hx of hernia repair (09/2015) Hx of laminectomy (~2011) Hx of tonsillectomy S/P lumbar spinal fusion (2016) [place] teeth extracted Medical History (Last Updated 01/19/22 @ 10:13 by Bijal Lutz PA-C) Acid reflux Arthritis BPH (benign prostatic hyperplasia) Chronic kidney disease, stage 4 (severe) DJD (degenerative joint disease) Dyslipidemia Easy bruisability Eczema Enlarged prostate Hematuria HTN (hypertension) Hyperthyroidism Loosening of hardware in spine Lumbar radiculopathy Onychomycosis Postherpetic neuralgia Sciatic leg pain Shingles Shortness of breath Sinusitis Spinal stenosis Water retention Physical Therapy Inpatient Evaluation/Re-Eval M1 PT/OT-IP Prior Functional Status Start: 01/19/22 11:42 Freq: NEEDED Status: Active Protocol: Document 01/19/22 08:50 AB (Rec: 01/19/22 11:52 AB [id number]) Medical Review Prior Functional Status Medical History Reviewed Yes Communication able to make needs known Mobility and Gait pt staed that he is modified independent with all mobilities and ambulation without AD but has been using a 4WW for the last 2 weeks indoors and SPC for outdoor mobility for the last 3 months due to back pain Social History Household Members spouse Living Arrangements House Number of Floors (Floors) One Floor Number of Stairs To Enter/Railing? elevator to get to main level of the house pt stays on main level of the house Home Environment Standard Height Toilet,Walk in Shower,Built-In Shower Seat Home Equipment Front Wheel Walker,Straight Cane,Raised Toilet Seat Without Armrests,Hand Held Shower,Grab Bars In Shower Additional Social History Comment pt sleeps on a chair M2 PT-IP Current Condition Start: 01/19/22 11:42 Freq: NEEDED Status: Active Protocol: Document 01/19/22 08:50 AB (Rec: 01/19/22 11:52 AB [email or web address]) Physical Therapy Current Condition Current Condition Evaluation Date 01/19/22 Treatment Diagnosis s/p L3-S1 TLIF; difficulty in walking Onset Date 01/18/22 M3 PT-IP Subjective Start: 01/19/22 11:42 Freq: NEEDED Status: Active Protocol: Document 01/19/22 08:50 AB (Rec: 01/19/22 11:52 AB [email or web address]) Subjective Physical Therapy Visit Type Type Initial Evaluation Visit Start Time 08:50 Visit Stop Time 09:35 Total Visit Minutes 45 Number of FILE CLERK DATA ENTRY Visits 0 Physical Therapy Visit Comments Patient Comments agreeable to do PT Therapy Pain Assessment Pain When Pain Assessed At Rest Pain Present Pain Present Pain Reported Location back Intensity 5 Scale Used Numeric (0 - 10) Pain Management Techniques Apply Cold,Distraction, Modification of Treatment,Re- positioning M4 PT-IP Mobility and Gait Start: 01/19/22 11:42 Freq: NEEDED Status: Active Protocol: Document 01/19/22 08:50 AB (Rec: 01/19/22 11:52 AB [email or web address]) PT-Bed Mobility Assessment Supine to Sit Supine to Sit Minimal Assistance,1 Person Assistance,Head of Bed Elevated Sit to Supine Sit to Supine Maximum Assistance,1 Person Assistance PT-Transfer Assessment Sit to and From Stand Sit to and from Stand Minimal Assistance,1 Person Assistance,Use of Upper Extremities Equipment Transfer Assistive Device Gait Belt,Front Wheeled Walker Orthotic/Prosthetic Devices or Brace: No Transfers Transfer Destination Bed,Chair Transfer Technique Stand Step Pivot Transfer Ability Level of Assist Contact Guard Assistance,1 Person Assistance,Use of Upper Extremities Comments Mobility Comments educated on back precautions. pt seated on chair. completed sit to stand min A with heavy UE use to push up. step transfer to bed using FWW CGA and completed log roll sit to supine max A and max cues. completed supine to sit min A and cues. completed sit to stand CGA to min A and cues and ambulated in room ~30 ft using FWW CGA. pt sat back on chair. positioned. call light and table placed wtihin reach. caregiver training this afternoon ~ 1pm. Gait Assessment Gait Gait Assistance Required: Contact Guard Assist Distance (Feet) 30 Able to Maintain Weight Bearing Status Yes During Gait Assistive Devices Assistive Device Gait Belt,Front Wheeled Walker Orthotic/Prosthetic Devices or Brace: No Gait Deviations General Gait Pattern Antalgic,Decreased Stride Length,Decreased Feet Clearance Factors Limiting Gait Function Factors Limiting Gait Function Decreased Activity Tolerance, Decreased Sensation,Decreased Strength,Difficulty Following Directions,Limited Range of Motion,Pain,Poor Balance,Poor Safety Awareness PT-Balance Assessment Sitting Balance and Reactions Static Sitting Balance Ability Good Dynamic Sitting Balance Ability Good Standing Balance and Reactions Static Standing Balance Ability Fair Dynamic Standing Balance Ability Fair Device Used FWW M5 PT-IP Objective Assessments Start: 01/19/22 11:42 Freq: NEEDED Status: Active Protocol: Document 01/19/22 08:50 AB (Rec: 01/19/22 11:52 AB [id number]) Orientation Orientation/Cognition Level of Alertness Alert Orientation Name,Place,Situation Language Function Ability No Deficits Noted Safety Awareness Decreased Safety Awareness Memory Description Short Term Impaired Gross Range of Motion Lower Extremity ROM Assessment Within Functional Limits Strength Comments Strength Comments LLE: 4-/5 RLE: 3+/5 Coordination Assessment Gross Coordination Gross Coordination WNL Muscle Tone Muscle Tone WNL Yes M6 PT-IP Treatment Start: 01/19/22 11:42 Freq: NEEDED Status: Active Protocol: Document 01/19/22 08:50 AB (Rec: 01/19/22 11:52 AB [email or web address]) Physical Therapy Treatment Education Education Provided Precautions,Weight Bearing Status,Post-Op Packet,Safety M7 PT-IP Assessment and Plan Start: 01/19/22 11:42 Freq: NEEDED Status: Active Protocol: Document 01/19/22 08:50 AB (Rec: 01/19/22 11:52 AB [email or web address]) PT Summary Assessment and Plan Potential Rehabilitation Potential Good Status of Condition at Evaluation Stable Summary Impairments Pain,ROM,Strength,Balance, Coordination,Sensation,Tone, Cognition,Bed Mobility, Transfers,Gait,Activity Tolerance Assessment Summary pt requiring max A with sit to supine but plans to sleep on a chair at home. pt requiring CGA to min A with transfers and ambulation using fWW and will have his spouse to assist him at home. caregiver training this afternoon at ~ 1pm and will continue to assess progress. Goals Bed Mobility Goal Standby Assistance Transfer Goal Standby Assistance,Front Wheeled Walker Gait Goal Standby Assistance,Front Wheel Walker Gait Distance 150 Days to Meet Goals 5 Frequency of Treatment Frequency Of Treatment Twice a Day Treatment Plan Physical Therapy Treatment Plan Bed Mobility Training,Transfer Training,Gait Training, Therapeutic Exercise,Balance Retraining,Post Op Education, Discharge Planning,Hot or Cold Pack,Neuromuscular Re-ed, Coordination Retraining,Manual Therapy Precautions Lumbar Precautions Log Roll,No Twisting,Limit Bending,Lifting Restriction of 10 lbs,Gait Belt above Incisional Area Recommendations To Nursing Amount of Assist Needed 1 Person Assist Discharge Recommendations PT Discharge Recommendations Home with Assistance,Home Health Transportation Needs at Discharge Private Vehicle
--- NOTE | 2022-01-19 08:57 | CM.DANOTE ---
Addendum entered by Heather Frias R.N. 01/19/22 14:28: Spoke to Luly Vizcaino, who indicated, spouse is concerned about patient going home. Was hopeful that he can go to skilled if needed. Met with patient and spouse, Morenita. Asked patient if he would be willing to go to rehab if needed, for it is hard for him to get out of chair post surgery, may need skilled rehab prior to going home. Patient and spouse would also like to see how he does tomorrow, may be able to go home with home health if he does better. Gave patient and spouse a Medicare Choice List. Encouraged them to pick three facilities. Their first choice is [facility]. Will also be willing to go to [facility] if needed, or [place]. Went ahead and called December at [facility] and left her a message to review. Let her know that patient is standard Medicare, would need to be here for three midnights. Having Jayne also send referrals over to [facility], [facility], and [facility]. Patient should qualify by Saturday, but it is uncertain if facilities other than [facility] can do a Saturday admit due to staffing. Patient could also improve on mobility tomorrow as well. Patient also is seeing hospitalist due to history of his kidney disease, and is having hospitalist consult. P: DCP having Jayne fax facilities in , and have a message out to December at [employer]. Patient will either go to skilled, or possibly home with home health if his mobility improves tomorrow. Original Note: DCP: Case received, EMR reviewed and met with patient. Introduced self and role. Was able to obtain information regarding patient's baseline activity level at home prior to his surgery. DCP assessment completed with information currently available. Patient is a 81 year old male who admitted yesterday morning to the care of the orthopedic team. PCP: Dr. Welch. Payer: confirmed: Medicare/[facility]. Patient came to the hospital via private vehicle secondary to having an orthopedic procedure. Patient had L3-4, L4-5, L5-S1 posterolateral and posterior interbody fusion. Patient has history of lumbar spondylolisthesis. Met with patient in his room. He was sitting up in bed, alert and oriented, pleasant. Patient resides in [place] with his spouse, Morenita. At his baseline, he has driven, has walker that he uses in the house, and a cane for outdoors. He has an elevator in his home as well. Confirmed his will be able to assist him when he goes home. P: DCP to continue to follow. Patient will be working with therapy. Plan is for home when medically stable and cleared by PGirish Frias RN/Coil Spring Assembler Discharge Planning/Care Management CM Discharge Assessment Start: 01/19/22 08:54 Freq: Status: Active Protocol: Document 01/19/22 08:55 (Rec: 01/19/22 08:55 [id number]) Discharge Planning Assessment Assigned Fuel Oil Clerk Heather Frias RN/Coil Spring Assembler Advance Directives? Yes Advance Directives on File No History Provided By Patient,Family Member,Medical Record Prior Living Arrangements House Household Members spouse Document 01/19/22 08:56 (Rec: 01/19/22 08:56 [id number]) Discharge Planning Assessment Assigned Fuel Oil Clerk Heather Frias RN/Coil Spring Assembler Advance Directives? Yes Advance Directives on File No History Provided By Patient,Family Member,Medical Record Prior Living Arrangements House Household Members spouse Type of transporation used prior to Drives own vehicle admit Independent with ADL's Yes Is patient alert and oriented? Yes Needs Assistance With Home Chores / Shopping DME Already Rented / Owned FWW / Walker,Cane Barriers to Discharge No Discharge Plan Home Transportation Arrangement Spouse Referrals Initiated None needed Whiteboard Updated in Patient Room with Yes name and ext. # of Fuel Oil Clerk Review Status In Process Next Review Type Continued Stay Review Pre-Anesthesia Assessment Start: 12/19/21 13:46 Freq: Status: Complete Protocol: Document 01/16/22 13:28 CAB (Rec: 12/19/21 14:56 CAB [id number]) Pre-Anesthesia Assessment PAC Comment Pt was originally scheduled for 12/27/21, cancelled due to high C02 per pt. Pt was very abrupt and rude when I called to update for upcoming surgery and ask about reason for cancellation. I reviewed medications only. Preferred Name Jesse Patient Information Reviewed Via Phone Assessment Assessment Completed With Patient,Spouse Diagnostic Results BMP/CMP,CBC,EKG Comment Labs/ECG @ [facility] 12/11/21, COVID screen 01/16/22 Primary Care Provider Milton Starkey Medical Clearance Received Yes Seen Specialist in Last 12 Months Yes Specialist Seen Certified Nurse,Orthopedist Comment PCP and Nephrology visits w/ clearances scanned to record Primary Language Slovenian Message And Delivery Service Pricer Required No Height 5 ft 9 in Weight 190 lb Body Mass Index (BMI) 28.0 Hearing Ability Normal Visual Impairment No Limitations Visual Assist Magnifying Glass Dentition Type Teeth, Natural Present,Teeth, Broken Barriers to Learning Age related,Memory Hx Anesthesia Reactions No Hx Family Anesthesia Reaction No Hx Malignant Hyperthermia No Hx Blood Transfusions No Anesthesia Review Requested No alcohol intake current alcohol intake frequency 0-2 drinks per day Smoking Status Former smoker how long ago did patient quit smoking Quit 2016 Substance Use Type does not use Pain Present Pain Reported Musculoskeletal Symptoms Abnormal Gait,Back Pain, Difficulty Walking,Joint Pain, Loss of Height,Muscle Spasms, Radiating Pain into Limb History of Falling (Recent or History of Yes ) Patient is completely paralyzed or No completely immobile Prosthesis or Orthotic Device Front Wheel Walker Mental Status Oriented to own ability Is patient on oxygen? No Does patient have TORREZ/SOB Yes: TORREZ Hx Sleep Apnea No Currently Taking a Beta Inés Yes: Metoprolol Can You Climb a Flight of Stairs Without No SOB Hx Chest Pain No Hx SOB Yes: TORREZ Hx Syncope or Dizziness No Anti-Coagulant Therapy No Has a Field Return Repairer No Cardiac Testing No Hx Pacemaker/ICD No Pacemaker Rep Required? No Cardiac Clearance Received Not Applicable Diet Type At Home Regular,Low Sodium dysphagia No Gastrointestinal Symptoms Reflux Bladder Pattern Frequency,Urgency Urinary Catheter Present No Hx Urinary Self Catheterization No Diabetes No Hx Drug Resistant Organism No Presence of External or Internal Medical Yes: Lumbar hardware, josephine eye Devices IOLs Have you had any close contact with No someone diagnosed with COVID-19? Received a COVID vaccine? Yes Received all doses? Yes Marital Status Lives With spouse Prior Living Arrangements House Number of Floors (Floors) Two Floors Support System Child/Children,Spouse Does the Patient Have Assistance After Yes: Children will assist w/ Surgery care at [place] Patient Discharge Plan Description Return Home Comment Pt advised 2-3 day length of stay per surgeon Feels Safe in Current Environment Yes Been Physically Hurt or Threatened By a No Person in Current Environment Do you have thoughts of harming yourself None or others? Are you currently considering suicide? No Do you have a plan to hurt yourself or No Plan others? Do You Have Any Spiritual Beliefs That No May Affect Your HC Choices? Do You Have Any Cultural Practices That No May Affect Your HC Choices? Comment Jainism Who Can We Speak to About Patient's Care Family, friends Identifying Code for Release of Patient Declines to issue Information Health Care Proxy/Next of Kin Morenita () Health Care Proxy Emergency Contact Name Adenike (daughter) Emergency Contact Advance Directives? Yes Advance Directives on File No Requested Patient Bring Advanced Yes Directives DOS Power of Study Coordinator No
[2022-01-19] MEDS: FUROSEMIDE 40 MG TABLET 80 MG PO ×2 (09:29→21:07)
[2022-01-19] MEDS: hydrOXYzine pamoate 25 MG CAPSULE PO ×2 (09:29→21:07)
[2022-01-19] MEDS: OXYCODONE IR 10 MG TABLET PO ×4 (09:31→21:20)
[2022-01-19] MEDS: DOCUSATE 100 MG CAPSULE PO ×2 (09:32→21:07)
[2022-01-19] MEDS: dexAMETHasone 1 MG TABLET 0.75 MG PO ×2 (09:37→21:09)
--- NOTE | 2022-01-19 10:24 | OT.IP.EVAL ---
Current Diagnoses Spondylolisthesis, lumbar region (01/18/22) Chronic kidney disease, stage 4 (severe) (01/18/22) Other mechanical complication of other internal orthopedic devices, implants and grafts, initial encounter (01/18/22) Arthrodesis status (01/18/22) Surgery Performed Operation Date: 01/18/22 09:15 Actual Procedures p L3-4, L4-5, L5-S1 TLIF w. posterior instrumentation, L5-S1 HWR -Reji - Cherelle Angela MD Past Medical History (Last Updated 01/19/22 @ 10:13 by Bijal Lutz PA-C) Acid reflux Arthritis BPH (benign prostatic hyperplasia) Chronic kidney disease, stage 4 (severe) DJD (degenerative joint disease) Dyslipidemia Easy bruisability Eczema Enlarged prostate Hematuria HTN (hypertension) Hyperthyroidism Loosening of hardware in spine Lumbar radiculopathy Onychomycosis Postherpetic neuralgia Sciatic leg pain Shingles Shortness of breath Sinusitis Spinal stenosis Water retention Surgical History (Last Updated 01/19/22 @ 10:13 by Bijal Lutz PA-C) Hx of bilateral cataract extraction Hx of hernia repair (09/2015) Hx of laminectomy (~2011) Hx of tonsillectomy S/P lumbar spinal fusion (2016) [place] teeth extracted Occupational Therapy Inpatient Evaluation/Re-Eval M1 PT/OT-IP Prior Functional Status Start: 01/19/22 11:42 Freq: NEEDED Status: Active Protocol: Document 01/19/22 08:50 AB (Rec: 01/19/22 11:52 AB [id number]) Medical Review Prior Functional Status Medical History Reviewed Yes Communication able to make needs known Mobility and Gait pt stated that he is modified independent with all mobilities and ambulation without AD but has been using a 4WW for the last 2 weeks indoors and SPC for outdoor mobility for the last 3 months due to back pain Social History Household Members spouse Living Arrangements House Number of Floors (Floors) One Floor Number of Stairs To Enter/Railing? elevator to get to main level of the house pt stays on main level of the house Home Environment Standard Height Toilet,Walk in Shower,Built-In Shower Seat Home Equipment Front Wheel Walker,Straight Cane,Raised Toilet Seat Without Armrests,Hand Held Shower,Grab Bars In Shower Additional Social History Comment pt sleeps on a chair M1 PT/OT-IP Prior Functional Status Start: 01/19/22 11:57 Freq: NEEDED Status: Active Protocol: Document 01/19/22 09:43 [facility] (Rec: 01/19/22 12:18 [facility] [id number]) Medical Review Prior Functional Status Medical History Reviewed Yes Communication able to make needs known Mobility and Gait pt stated that he is modified independent with all mobilities and ambulation without AD but has been using a 4WW for the last 2 weeks indoors and SPC for outdoor mobility for the last 3 months due to back pain Activities of Daily Living and IADL's Pt states still able to do ADL needs with increased time Social History Household Members spouse Living Arrangements House Number of Stairs To Enter/Railing? elevator to get to main level of the house pt stays on main level of the house Home Environment Standard Height Toilet,Walk in Shower,Built-In Shower Seat Home Equipment Front Wheel Walker,Straight Cane,Raised Toilet Seat Without Armrests,Hand Held Shower,Grab Bars In Shower Additional Social History Comment pt sleeps on a chair M2 OT-IP Current Condition Start: 01/19/22 11:57 Freq: Status: Active Protocol: Document 01/19/22 09:43 [facility] (Rec: 01/19/22 12:18 [facility] [id number]) Occupational Therapy Current Condition Current Condition Evaluation Date 01/19/22 Treatment Diagnosis S/p L3-S1 TLIF, L5-S1 hardware removal, L3-S1 PSF Diagnosis Onset Date 01/18/22 Post Operative Precautions Lumbar Precautions Log Roll,No Twisting,Limit Bending,Lifting Restriction of 10 lbs,Gait Belt above Incisional Area M3 OT- IP Subjective and Pain Start: 01/19/22 11:57 Freq: Status: Active Protocol: Document 01/19/22 09:43 [facility] (Rec: 01/19/22 12:18 [facility] [id number]) OT- Subjective Occupational Therapy Visit Type Type Initial Evaluation Visit Start Time 09:43 Visit Stop Time 10:24 Total Visit Minutes 41 Occupational Therapy Visit Comments Patient Comments Pt agreed to get up for OT eval. Pt already sitting upright in the recliner. Patient/Caregiver Goals TO go home but open to going to skilled rehab if needed. OT Pain Assessment Pain When Pain Assessed At Rest Pain Present Pain Present Pain Reported Location back Intensity 5 Scale Used Numeric (0 - 10) M4 OT- IP ADL's Start: 01/19/22 11:57 Freq: Status: Active Protocol: Document 01/19/22 09:43 [facility] (Rec: 01/19/22 12:18 [facility] [id number]) OT [id number] Comments OT Self-Feeding Comments Able to do after set-up. OT ADL-Grooming General Evaluation Grooming Ability Standby Assistance Areas Needing Assistance Retrieving/Set-up of Grooming Items Comments OT Grooming Comments while seated OT ADL-Oral Care General Eval Oral Care Ability Standby Assistance Areas of Assistance Retrieving/Set-Up of Items Comments Oral Care Comments Attempted to stand at the sink with FWW for grooming needs and then go too tired and having to go back and sit down on the recliner to complete oral care needs. Educated if standing would be best to spit into a cup to best follow his back precautions. OT ADL-Dressing Comments OT Dressing Comments Pt insists that his will assist him with his ADl needs. OT ADL-Toileting Comments OT Toileting Comments Pt not having to go at this time. OT ADL-Bathing Comments OT Bathing Comments NOt performed. M5 OT- IP IADL's Start: 01/19/22 11:57 Freq: Status: Active Protocol: Document 01/19/22 09:43 [facility] (Rec: 01/19/22 12:18 [facility] [id number]) OT-Instrumental Activities of Daily Living Home Safety Awareness Home Safety Comments Pt has decreased short term memory and at this time if having to go home would be best for pt to have 24/7 assist. Meal Preparation Meal Preparation Caregiver Provides Assist Scroll Saw Operator Scroll Saw Operator Caregiver Provides Assist Driving Driving Caregiver Provides Assist M6 OT- IP Functional Cognition Start: 01/19/22 11:57 Freq: Status: Active Protocol: Document 01/19/22 09:43 [facility] (Rec: 01/19/22 12:18 [facility] [id number]) Cognitive Factors Limiting Selfcare Function Cognitive Ability Level of Alertness Alert Patient Orientation Name,Place,Situation Attention Span Ability Capable of Focused Attention, Capable of Sustained Attention Ability to Follow Commands Able to Follow One Step Commands with Increased Time, Able to Follow One Step Commands with Repetition Memory Description Short Term Impaired Safety Awareness Decreased Recall of Precautions,Decreased Ability to Apply Precautions, Underestimates Need for Assistance Cognitive Comments Cognitive Assessment Comments Pt needing step by step simple concrete cues to follow his back precautions. Pt has decreased short term memory and needing continuous explanations and cues for safety during ADl and mobility needs. OT- Vision and Hearing OT- Hearing Assessment OT- Hearing Assessment WFL OT- Vision Assessment Visual Acuity Glasses For Reading M7 OT- IP Mobility and Balance Start: 01/19/22 11:57 Freq: Status: Active Protocol: Document 01/19/22 09:43 [facility] (Rec: 01/19/22 12:18 [facility] [id number]) OT-Transfer Assessment Sit to and From Stand Sit to and from Stand Moderate Assistance,Maximum Assistance Transfers Transfer Ability Minimal Assistance,Moderate Assistance Technique Transfer Destination Chair Transfer Technique Stand Step Pivot Devices Transfer Assistive Devices Gait Belt,Front Wheeled Walker Comments Mobility Comments Pt needing mod/MAX to stand with the FWW. Once on his feet, pt able to move with KAHLIL FWW and as he tires needing MODA x1. OT- Balance Assessment Sitting Balance and Reactions Static Sitting Balance Ability Good Dynamic Sitting Balance Ability Good Standing Balance and Reactions Static Standing Balance Ability Fair M8 OT- IP Objective Assessments Start: 01/19/22 11:57 Freq: Status: Active Protocol: Document 01/19/22 09:43 [facility] (Rec: 01/19/22 12:18 [facility] [id number]) OT Gross Range of Motion Upper Extremity Range of Motion Assessment Left Impaired ROM Impairments Pt states has left shoulder pain which limits his AROM. OT-Muscle Tone Assessment Muscle Tone WNL Yes M9 OT- IP Assessment and Plan Start: 01/19/22 11:57 Freq: Status: Active Protocol: Document 01/19/22 09:43 [facility] (Rec: 01/19/22 12:18 [facility] [id number]) OT Summary Assessment and Plan Potential Rehabilitation Potential Good Analytic Complexity at Evaluation Low Summary OT Impairments Pain,Strength,Balance, Functional Cognition, Functional Mobility,Grooming, Dressing,Toileting,Bathing, Toilet Transfers,Shower Transfers,Activity Tolerance Progress Towards Goals Slow Progress due to Pain,Slow Progress due to Activity Tolerance,Slow Progress due to Cognition Assessment Summary Pt low complexity and now needing MOD/MAXA x1 to stand to FWW as prior pt states has a bad left shoulder. Pt not able to tolerate standing to do oral care needs at this time. Pt would benefit from skilled rehab as current care may be too much for his to assist. Therefore pending progress and caregiver training SNF versus home with 24/7 assist and home health. Goals Grooming Goal Independent Dressing Goal Independent Toileting Goal Independent Bathing Goal Independent Toilet Transfer Goal Independent Shower Transfer Goal Independent Patient/Caregiver Education Goal Demonstrate Post-Op Precautions,Demonstrate Energy Conservation and Pacing Days to Meet Goals 15 Frequency of Treatment Frequency Of Treatment Once a Day Treatment Plan OT Treatment Plan ADL Training,Functional Cognition Training,Functional Mobility,Patient/Family Education,Discharge Planning Other Treatment Recommendations and Next Standing at the sink for Treatment Focus grooming/oral care needs. Discharge Recommendations OT Discharge Recommendations SNF Rehab Other Discharge Recommendations pending progress and caregiver training possibly home with 24/7 assist and home health Transportation Needs at Discharge Wheelchair/Cabulance
[2022-01-19] MEDS: HYDROMORPHONE 0.5 MG INJ IV (10:40)
--- NOTE | 2022-01-19 13:25 | PT.IPTN ---
Current Diagnoses Spondylolisthesis, lumbar region (01/18/22) Chronic kidney disease, stage 4 (severe) (01/18/22) Other mechanical complication of other internal orthopedic devices, implants and grafts, initial encounter (01/18/22) Arthrodesis status (01/18/22) Surgery Performed Operation Date: 01/18/22 09:15 Actual Procedures p L3-4, L4-5, L5-S1 TLIF w. posterior instrumentation, L5-S1 HWR -Reji - Cherelle Angela MD Physical Therapy Treatment Note M2 PT-IP Current Condition Start: 01/19/22 11:42 Freq: NEEDED Status: Active Protocol: Document 01/19/22 08:50 AB (Rec: 01/19/22 11:52 AB [id number]) Physical Therapy Current Condition Current Condition Evaluation Date 01/19/22 Treatment Diagnosis s/p L3-S1 TLIF; difficulty in walking Onset Date 01/18/22 M3 PT-IP Subjective Start: 01/19/22 11:42 Freq: NEEDED Status: Active Protocol: Document 01/19/22 13:25 AB (Rec: 01/19/22 14:25 AB [id number]) Subjective Physical Therapy Visit Type Type Treatment Note Visit Start Time 13:25 Visit Stop Time 14:10 Total Visit Minutes 45 Number of LEADERSHIP PROGRAM ASSOCIATE Visits 0 Physical Therapy Visit Comments Patient Comments pt agreeable to do PT Therapy Pain Assessment Pain When Pain Assessed At Rest Pain Present Pain Present Pain Reported Location back Scale Used pain scale not stated Pain Management Techniques Apply Cold,Modification of Treatment,Re-positioning, Timing of Activity with Medications M4 PT-IP Mobility and Gait Start: 01/19/22 11:42 Freq: NEEDED Status: Active Protocol: Document 01/19/22 13:25 AB (Rec: 01/19/22 14:25 AB [id number]) PT-Transfer Assessment Sit to and From Stand Sit to and from Stand Contact Guard Assistance, Minimal Assistance,Use of Upper Extremities Equipment Transfer Assistive Device Gait Belt,Front Wheeled Walker Orthotic/Prosthetic Devices or Brace: No Comments Mobility Comments spouse in room for caregiver training. educated spouse on how to use safety belt and how to assist pt. spouse was able to put safety belt at home and assisted pt with sit to stand ambulation in room using fWW. pt refused bed mobility and does not sleep on a bed. positioned pt on the chair. ice pack provided. call light and table placed within reach. spouse concenred about pt going home and wants to to go to SNF. informed case consultant. Gait Assessment Gait Gait Assistance Required: Contact Guard Assist Distance (Feet) 30 Able to Maintain Weight Bearing Status Yes During Gait Assistive Devices Assistive Device Gait Belt,Front Wheeled Walker Orthotic/Prosthetic Devices or Brace: No Gait Deviations General Gait Pattern Decreased Stride Length, Decreased Feet Clearance,Step- to Gait Factors Limiting Gait Function Factors Limiting Gait Function Decreased Activity Tolerance, Decreased Strength,Pain,Poor Balance,Poor Safety Awareness M5 PT-IP Objective Assessments Start: 01/19/22 11:42 Freq: NEEDED Status: Active Protocol: Document 01/19/22 08:50 AB (Rec: 01/19/22 11:52 AB [id number]) Orientation Orientation/Cognition Level of Alertness Alert Orientation Name,Place,Situation Language Function Ability No Deficits Noted Safety Awareness Decreased Safety Awareness Memory Description Short Term Impaired Gross Range of Motion Lower Extremity ROM Assessment Within Functional Limits Strength Comments Strength Comments LLE: 4-/5 RLE: 3+/5 Coordination Assessment Gross Coordination Gross Coordination WNL Muscle Tone Muscle Tone WNL Yes M6 PT-IP Treatment Start: 01/19/22 11:42 Freq: NEEDED Status: Active Protocol: Document 01/19/22 13:25 AB (Rec: 01/19/22 14:25 AB [id number]) Physical Therapy Treatment Education Education Provided Precautions,Safety M7 PT-IP Assessment and Plan Start: 01/19/22 11:42 Freq: NEEDED Status: Active Protocol: Document 01/19/22 13:25 AB (Rec: 01/19/22 14:25 AB [id number]) PT Summary Assessment and Plan Potential Rehabilitation Potential Fair Summary Impairments Pain,ROM,Strength,Balance, Coordination,Sensation,Tone, Cognition,Bed Mobility, Transfers,Gait,Activity Tolerance Progress Towards Goals Slow Progress due to Pain,Slow Progress due to Activity Tolerance Assessment Summary caregiver training conducted and spouse was able to assist pt with mobility but pt with decrease activity tolerance affecting mobiltiy. spouse is concerned about pt goint home and her having to assist him. spouse wants pt to go to SNF . informed case consultant. will continue to assess pt's progress. Goals Bed Mobility Goal Standby Assistance Transfer Goal Standby Assistance,Front Wheeled Walker Gait Goal Standby Assistance,Front Wheel Walker Gait Distance 150 Days to Meet Goals 5 Frequency of Treatment Frequency Of Treatment Twice a Day Treatment Plan Physical Therapy Treatment Plan Bed Mobility Training,Transfer Training,Gait Training, Therapeutic Exercise,Balance Retraining,Post Op Education, Discharge Planning,Hot or Cold Pack,Neuromuscular Re-ed, Coordination Retraining,Manual Therapy Precautions Lumbar Precautions Log Roll,No Twisting,Limit Bending,Lifting Restriction of 10 lbs,Gait Belt above Incisional Area Recommendations To Nursing Amount of Assist Needed 1 Person Assist Discharge Recommendations PT Discharge Recommendations Home with Assistance,Home Health Transportation Needs at Discharge Private Vehicle,Wheelchair/ Cabulance
--- NOTE | 2022-01-19 15:15 | CM.DPNOTE ---
Faxed [facility] and emailed [facility] and Jennie García per [place]. Rec. conf. Jayne Agustin CM Assist
--- NOTE | 2022-01-19 16:15 | PM.PN.1 ---
Subjective Subjective Date Patient Seen: 01/19/22 Time Patient Seen: 08:00 Interval history: He does have some back pain. Otherwise he feels well. His lower leg swelling is at his baseline. Exam Vital Signs (past 8 hours): - 01/19/22 11:23 01/19/22 16:14 Temperature 98.6 F 98.8 F Pulse Rate 76 69 Respiratory Rate 18 18 Blood Pressure 160/92 H 163/98 H Pulse Oximetry 97 97 Oxygen Flow Rate 0 0 Oxygen Delivery Method Nasal Cannula Oxygen Flow Rate 0 Narrative Exam Narrative: GEN: no acute distress HEENT: moist mucous membranes, PERRL NECK: trachea midline, no JVD PULM: clear bilaterally ABD: soft, nontender, nondistended, no organomegaly EXT: warm and well perfused, 2+ edema, legs wrapped Objective Labs Result Diagrams: 01/19/22 06:47 01/19/22 06:47 Labs: Laboratory Results - last 24 hr 01/18/22 01/18/22 01/18/22 20:58 20:58 20:58 WBC RBC Hgb Hct MCV MCH MCHC RDW Plt Count Neut % (Auto) Lymph % (Auto) [place] % (Auto) Eos % (Auto) Baso % (Auto) Neut # (Auto) Lymph # (Auto) [place] # (Auto) Eos # (Auto) Baso # (Auto) Sodium 140 Potassium 4.3 Chloride 100 Carbon Dioxide 29 BUN Cancelled 65 H Creatinine Cancelled 2.77 H Estimated GFR Cancelled 23 L BUN/Creatinine Ratio Cancelled 23.5 H Glucose 141 H Calcium 9.3 Magnesium 2.2 Total Bilirubin 0.4 AST 40 ALT 20 Alkaline Phosphatase 61 NT-Pro-B Natriuret Pep Total Protein 6.4 Albumin 3.6 Globulin 2.8 Albumin/Globulin Ratio 1.3 01/18/22 01/18/22 01/19/22 20:58 21:10 06:47 WBC 11.2 H RBC 3.66 L Hgb 11.1 L 10.8 L Hct 32.9 L 31.5 L MCV 89.9 MCH 30.5 MCHC 33.9 RDW 13.0 Plt Count 277 Neut % (Auto) 91.6 H Lymph % (Auto) 3.0 L [place] % (Auto) 5.2 Eos % (Auto) 0.0 L Baso % (Auto) 0.2 Neut # (Auto) 10229 H Lymph # (Auto) 300 L [place] # (Auto) 600 Eos # (Auto) 0 Baso # (Auto) 0 Sodium Potassium Chloride Carbon Dioxide BUN Creatinine Estimated GFR BUN/Creatinine Ratio Glucose Calcium Magnesium Total Bilirubin AST ALT Alkaline Phosphatase NT-Pro-B Natriuret Pep 745 H Total Protein Albumin Globulin Albumin/Globulin Ratio 01/19/22 06:47 WBC RBC Hgb Hct MCV MCH MCHC RDW Plt Count Neut % (Auto) Lymph % (Auto) [place] % (Auto) Eos % (Auto) Baso % (Auto) Neut # (Auto) Lymph # (Auto) [place] # (Auto) Eos # (Auto) Baso # (Auto) Sodium 138 Potassium 4.1 Chloride 100 Carbon Dioxide 32 BUN 62 H Creatinine 2.60 H Estimated GFR 24 L BUN/Creatinine Ratio 23.8 H Glucose 119 H Calcium 9.2 Magnesium Total Bilirubin AST ALT Alkaline Phosphatase NT-Pro-B Natriuret Pep Total Protein Albumin Globulin Albumin/Globulin Ratio PFSH Medical History (Updated 01/19/22 @ 10:13 by Bijal Lutz PA-C) Acid reflux Arthritis BPH (benign prostatic hyperplasia) Chronic kidney disease, stage 4 (severe) DJD (degenerative joint disease) Dyslipidemia Easy bruisability Eczema Enlarged prostate Hematuria HTN (hypertension) Hyperthyroidism Loosening of hardware in spine Lumbar radiculopathy Onychomycosis Postherpetic neuralgia Sciatic leg pain Shingles Shortness of breath Sinusitis Spinal stenosis Water retention Surgical History (Updated 01/19/22 @ 10:13 by Bijal Lutz PA-C) Hx of bilateral cataract extraction Hx of hernia repair (09/2015) Hx of laminectomy (~2011) Hx of tonsillectomy S/P lumbar spinal fusion (2016) [place] teeth extracted Family History (Updated 01/19/22 @ 05:02 by TAMANNA Mackey) Father Cancer Mother Congestive heart failure Social History household members: spouse Smoking Status: Former smoker alcohol intake: current Assessment & Plan Assessment & Plan narrative: David Dong is a 81-year-old male with a history of CKD stage IV, hypertension, BPH, and dyslipidemia, spinal stenosis, scoliosis, spondylolisthesis s/p surgery 1.Chronic back pain and worsening bilateral leg pain and weakness, due to spinal stenosis, scoliosis, spondylolisthesis -manage per ortho 2. CKD stage 4, chronic, present on admission -stop IV fluids -continue home dose lasix -creatinine improved, and at or better than baseline 3. Hypertension, acute on chronic, present on admission -continue metoprolol 4. Dyslipidemia, chronic, present on admission -continue pravastatin 5. BPH, chronic, present on admission continue -continue Avodart & alfuzosin Patient appears to be doing well medically. He is on his home medications. He has no medical complaints. He is stable to discharge from his medical issues, but awaits surgery discharge. For now medicine will sign off please consult with further questions. Time Spent With Patient Critical Care time: I spent a total of [] minutes of critical care time on this patient's care today; this time is exclusive of procedural time. Quality VTE Deep Vein Thrombosis/Pulmonary Embolism Present on Admission: No
[2022-01-19] MEDS: METOPROLOL ER 25 MG TABLET PO (18:00)
[2022-01-19] MEDS: DUTASTERIDE 0.5 MG CAPSULE PO (18:19)
--- NOTE | 2022-01-19 20:03 | PC.NURSE ---
Pt A&Ox4, reporting pain 4-6/10 throughout the shift. Able to ambulate with CGA to BR using FWW. +4 pitting edema to B feet and , noted started weeping this shift. Per patient and this is the first time legs have leaked. Pt IVF dc'd, he is voiding multiple times this shift after jay dc'd and is on scheduled lasix. RN wrapped legs in kerlix and toya wrap, no skin lesions/openings seen in legs. Dressings changed twice. expresses concern about managing bandages at home.
[2022-01-19] MEDS: PRAVASTATIN 20 MG TABLET PO (21:07)
[2022-01-19] MEDS: SENNOSIDES 8.6 MG TABLET 17.2 MG PO (21:08)
[2022-01-20] MEDS: ACETAMINOPHEN 325 MG TABLET 650 MG PO (03:04)
[2022-01-20 06:00] VITALS: BP 148/78; PULSE 65; RESP 16; TEMP 37.1; O2SAT 94
--- NOTE | 2022-01-20 08:53 | P.PN_ITS ---
Subjective Subjective Date Patient Seen: 01/20/22 Time Patient Seen: 08:53 Interval history: Pt sitting up in chair, eating breakfast. Spouse has concerns about his returning home. Primarily, she says there are about 30 steps from where he normally sits to the bathroom, and then there are another 5 steps to the toilet with no room for a walker in the bathroom. Patient complains of significant back pain this morning, denies leg pain. Legs are wrapped in JOANNE bandages and skin is weeping fluid; pts says this is new since surgery; I explained to her that his legs were weeping with even light pressure prior to surgery when we were transferring him. Exam Vital Signs (past 8 hours): - 01/20/22 06:00 Temperature 98.8 F Pulse Rate 65 Respiratory Rate 16 Blood Pressure 148/78 H Pulse Oximetry 94 Oxygen Flow Rate 0 Oxygen Delivery Method Nasal Cannula Oxygen Flow Rate 0 Narrative Exam Narrative: 5/5 strength in hip flexors, quadriceps, hamstrings, DF, PF, EHL bilaterally. Sensation to light touch intact in BLE. Calves are significantly less distended today with JOANNE wraps; feet are in regular socks and still markedly edematous. Objective Labs Result Diagrams: 01/19/22 06:47 01/19/22 06:47 [facility] Medical History (Updated 01/19/22 @ 10:13 by Bijal Lutz PA-C) Acid reflux Arthritis BPH (benign prostatic hyperplasia) Chronic kidney disease, stage 4 (severe) DJD (degenerative joint disease) Dyslipidemia Easy bruisability Eczema Enlarged prostate Hematuria HTN (hypertension) Hyperthyroidism Loosening of hardware in spine Lumbar radiculopathy Onychomycosis Postherpetic neuralgia Sciatic leg pain Shingles Shortness of breath Sinusitis Spinal stenosis Water retention Surgical History (Updated 01/19/22 @ 10:13 by Bijal Lutz PA-C) Hx of bilateral cataract extraction Hx of hernia repair (09/2015) Hx of laminectomy (~2011) Hx of tonsillectomy S/P lumbar spinal fusion (2016) [place] teeth extracted Family History (Updated 01/19/22 @ 05:02 by TAMANNA Mackey) Father Cancer Mother Congestive heart failure Social History household members: spouse Smoking Status: Former smoker alcohol intake: current Assessment & Plan Post-op Assessment and plan (1) S/P lumbar spinal fusion: Assessment and Plan narrative: PT to work with patient today on walking and toilet transfer. HH vs SNF based on progress w/ PT today. Will try cyclobenzaprine rather than hydroxyzine for muscle relaxation to help with pain control. (2) Chronic kidney disease, stage 4 (severe): Assessment and Plan narrative: Spoke w/ Dr Ruth this morning; renal function appears to be at or better than baseline, current medication regimen appropriate. Hospitalist service signing off; appreciate help. Postoperative Procedures: Procedures Operation Date: 01/18/22 09:15 Actual Procedure Side Surgeon p L3-4, L4-5, L5-S1 TLIF w. posterior instrumentation, L5-S1 HWR -Robot Cherelle Angela MD Postoperative day: 2 Quality VTE Deep Vein Thrombosis/Pulmonary Embolism Present on Admission: No
[2022-01-20] MEDS: OXYCODONE IR 10 MG TABLET PO (09:02)
[2022-01-20] MEDS: DOCUSATE 100 MG CAPSULE PO ×2 (09:03→21:16)
[2022-01-20] MEDS: FUROSEMIDE 40 MG TABLET 80 MG PO ×2 (09:03→21:16)
[2022-01-20] MEDS: hydrOXYzine pamoate 25 MG CAPSULE PO (09:03)
[2022-01-20 09:28] VITALS: BP 159/82; PULSE 64; RESP 16; TEMP 37.1; O2SAT 94
--- NOTE | 2022-01-20 09:57 | OT.IPNOTE ---
Went to see pt for OT treatment and pt asleep and requesting for therapist to come back later.
[2022-01-20] MEDS: dexAMETHasone 1 MG TABLET 0.75 MG PO ×2 (10:09→21:17)
--- NOTE | 2022-01-20 11:12 | PT.IPTN ---
Current Diagnoses Spondylolisthesis, lumbar region (01/18/22) Chronic kidney disease, stage 4 (severe) (01/18/22) Other mechanical complication of other internal orthopedic devices, implants and grafts, initial encounter (01/18/22) Arthrodesis status (01/18/22) Surgery Performed Operation Date: 01/18/22 09:15 Actual Procedures p L3-4, L4-5, L5-S1 TLIF w. posterior instrumentation, L5-S1 HWR -Reji - Cherelle Angela MD Physical Therapy Treatment Note M2 PT-IP Current Condition Start: 01/19/22 11:42 Freq: NEEDED Status: Active Protocol: Document 01/19/22 08:50 AB (Rec: 01/19/22 11:52 AB [id number]) Physical Therapy Current Condition Current Condition Evaluation Date 01/19/22 Treatment Diagnosis s/p L3-S1 TLIF; difficulty in walking Onset Date 01/18/22 M3 PT-IP Subjective Start: 01/19/22 11:42 Freq: NEEDED Status: Active Protocol: Document 01/20/22 10:56 KS (Rec: 01/20/22 12:12 KS [id number]) Subjective Physical Therapy Visit Type Type Treatment Note Visit Start Time 10:56 Visit Stop Time 11:12 Total Visit Minutes 16 Number of HYDROLOGICAL TECHNICAL OFFICER Visits 1 Physical Therapy Visit Comments Patient Comments pt agreeable to do PT Therapy Pain Assessment Pain When Pain Assessed During Mobility Pain Present Pain Present Pain Reported M4 PT-IP Mobility and Gait Start: 01/19/22 11:42 Freq: NEEDED Status: Active Protocol: Document 01/20/22 10:56 KS (Rec: 01/20/22 12:12 KS [id number]) PT-Bed Mobility Assessment Scooting Scooting to Edge of Bed Contact Guard Assistance PT-Transfer Assessment Sit to and From Stand Sit to and from Stand Minimal Assistance,1 Person Assistance,Use of Upper Extremities Equipment Transfer Assistive Device Gait Belt,Front Wheeled Walker Orthotic/Prosthetic Devices or Brace: No Transfers Transfer Destination Chair Transfer Technique pt ambulated Transfer Ability Level of Assist Contact Guard Assistance, Minimal Assistance,1 Person Assistance,Use of Upper Extremities Comments Mobility Comments Pt exiting bathroom upon arrival and agreeable to further ambulation. Pt ambulated ~50 ft around room w / FWW CGA. Decreased stride and minimal ground clearance, but no LOB and proper use of FWW. Pt reported fatigue and requested to sit in chair. He then performed 2x sit<>stands before requesting to rest. Cued pt to push up from chair w/ one arm and keep other hand on FWW as he tends to lean back and have more difficulty bringing arms up to FWW when he pushes up from chair using BUE. Pt left reclined in chair w/ alarm on and all needs in reach. Gait Assessment Gait Gait Assistance Required: Contact Guard Assist Distance (Feet) 50 Able to Maintain Weight Bearing Status Yes During Gait Assistive Devices Assistive Device Gait Belt,Front Wheeled Walker Orthotic/Prosthetic Devices or Brace: No Gait Deviations General Gait Pattern Decreased Stride Length, Decreased Feet Clearance Factors Limiting Gait Function Factors Limiting Gait Function Decreased Activity Tolerance, Decreased Strength,Pain,Poor Balance,Poor Safety Awareness Comments Gait Comments Please refer to mobility section for details. PT-Balance Assessment Sitting Balance and Reactions Static Sitting Balance Ability Good Dynamic Sitting Balance Ability Good Standing Balance and Reactions Static Standing Balance Ability Fair Dynamic Standing Balance Ability Fair Device Used FWW M5 PT-IP Objective Assessments Start: 01/19/22 11:42 Freq: NEEDED Status: Active Protocol: Document 01/19/22 08:50 AB (Rec: 01/19/22 11:52 AB [id number]) Orientation Orientation/Cognition Level of Alertness Alert Orientation Name,Place,Situation Language Function Ability No Deficits Noted Safety Awareness Decreased Safety Awareness Memory Description Short Term Impaired Gross Range of Motion Lower Extremity ROM Assessment Within Functional Limits Strength Comments Strength Comments LLE: 4-/5 RLE: 3+/5 Coordination Assessment Gross Coordination Gross Coordination WNL Muscle Tone Muscle Tone WNL Yes M6 PT-IP Treatment Start: 01/19/22 11:42 Freq: NEEDED Status: Active Protocol: Document 01/20/22 10:56 KS (Rec: 01/20/22 12:12 [place] [id number]) Physical Therapy Treatment Exercises Exercises Ankle Pumps Education Education Provided Precautions,Safety Other Treatments Other Treatment Performed Discussed home vs. SNF, at home safety and DME M7 PT-IP Assessment and Plan Start: 01/19/22 11:42 Freq: NEEDED Status: Active Protocol: Document 01/20/22 10:56 KS (Rec: 01/20/22 12:12 KS [id number]) PT Summary Assessment and Plan Potential Rehabilitation Potential Fair Summary Impairments Pain,ROM,Strength,Balance, Coordination,Sensation,Tone, Cognition,Bed Mobility, Transfers,Gait,Activity Tolerance Progress Towards Goals Slow Progress due to Pain,Slow Progress due to Activity Tolerance Assessment Summary Pt requiring Min A for sit<> stand, and CGA for ambulation today. Quick approach to fatigue due to weakness and low tolerance for activity. Spouse and pt remain concerned about going home and are leaning towards SNF. Depending on progress, pt may benefit SNF to improve functional mobility independence and activity tolerance. If he goes home, he will need HHPT. Goals Bed Mobility Goal Standby Assistance Transfer Goal Standby Assistance,Front Wheeled Walker Gait Goal Standby Assistance,Front Wheel Walker Gait Distance 150 Days to Meet Goals 5 Frequency of Treatment Frequency Of Treatment Twice a Day Treatment Plan Physical Therapy Treatment Plan Bed Mobility Training,Transfer Training,Gait Training, Therapeutic Exercise,Balance Retraining,Post Op Education, Discharge Planning,Hot or Cold Pack,Neuromuscular Re-ed, Coordination Retraining,Manual Therapy Precautions Lumbar Precautions Log Roll,No Twisting,Limit Bending,Lifting Restriction of 10 lbs,Gait Belt above Incisional Area Recommendations To Nursing Amount of Assist Needed 1 Person Assist Discharge Recommendations PT Discharge Recommendations Home with Assistance,Home Health,SNF Rehab,Home vs SNF Transportation Needs at Discharge Private Vehicle,Wheelchair/ Cabulance
--- NOTE | 2022-01-20 12:11 | CM.DPC ---
DCP Cont: Nel from [facility] had left a message indicating that she can accept patient tomorrow, but spouse would need to transport, for they do not have transportation available. Nel at [facility] also indicated that she can accept, but can only admit two patients, and will depend upon other patients being ready for admission. Met with patient and spouse, Morenita. Discussed skilled options. Spouse is prepared to drive patient to [facility] if [facility] can't accept. She also indicated, she might just have him go home tomorrow with home health, was feeling better about home plan after speaking to orthopedics PA. Patient does still have her Medicare Choice List given to her yesterday. P: DCP to continue to follow. Plan is either [facility], [facility], or home health. PASSR completed today. Heather Frias RN/Dry Clipper Tender
--- NOTE | 2022-01-20 13:34 | OT.IP.TRT ---
Current Diagnoses Spondylolisthesis, lumbar region (01/18/22) Chronic kidney disease, stage 4 (severe) (01/18/22) Other mechanical complication of other internal orthopedic devices, implants and grafts, initial encounter (01/18/22) Arthrodesis status (01/18/22) Surgery Performed Operation Date: 01/18/22 09:15 Actual Procedures p L3-4, L4-5, L5-S1 TLIF w. posterior instrumentation, L5-S1 HWR -Reji - Cherelle Angela MD Occupational Therapy Treatment Note M2 OT-IP Current Condition Start: 01/19/22 11:57 Freq: Status: Active Protocol: Document 01/19/22 09:43 [facility] (Rec: 01/19/22 12:18 [facility] [id number]) Occupational Therapy Current Condition Current Condition Evaluation Date 01/19/22 Treatment Diagnosis S/p L3-S1 TLIF, L5-S1 hardware removal, L3-S1 PSF Diagnosis Onset Date 01/18/22 Post Operative Precautions Lumbar Precautions Log Roll,No Twisting,Limit Bending,Lifting Restriction of 10 lbs,Gait Belt above Incisional Area M3 OT- IP Subjective and Pain Start: 01/19/22 11:57 Freq: Status: Active Protocol: Document 01/20/22 13:50 [facility] (Rec: 01/20/22 14:01 [facility] [id number]) OT- Subjective Occupational Therapy Visit Type Type Treatment Note Visit Start Time 13:06 Visit Stop Time 13:34 Total Visit Minutes 28 Occupational Therapy Visit Comments Patient Comments Pt agreed to get up to do oral care at the sink. Pt's present in the room. Noted socks and cushion wet from pt's heels weeping able to notify nursing. Patient/Caregiver Goals To get better. Pt would like to go home but open to going to skilled rehab. OT Pain Assessment Pain When Pain Assessed At Rest Pain Present Pain Present Pain Reported Location back Intensity 4 Scale Used Numeric (0 - 10) M4 OT- IP ADL's Start: 01/19/22 11:57 Freq: Status: Active Protocol: Document 01/20/22 13:50 [facility] (Rec: 01/20/22 14:01 [facility] [id number]) OT [id number] Comments OT Self-Feeding Comments Not at meal time. OT ADL-Grooming General Evaluation Grooming Ability Standby Assistance Areas Needing Assistance Retrieving/Set-up of Grooming Items Comments OT Grooming Comments while seated OT ADL-Oral Care General Eval Oral Care Ability Standby Assistance Areas of Assistance Retrieving/Set-Up of Items Comments Oral Care Comments Able to get pt to the sink with KAHLIL and fww. Immediately after pt at the sink not able to tolerate standing and having to get back to the recliner to sit for his oral care needs. OT ADL-Toileting General Evaluation Toileting Ability Minimal Assistance Areas Needing Assistance Manage Clothing Comments OT Toileting Comments Pt KAHLIL for clothing management needs. VC for safety to keep the FWW in front of him at all times. OT ADL-Bathing Comments OT Bathing Comments NOt performed. M5 OT- IP IADL's Start: 01/19/22 11:57 Freq: Status: Active Protocol: Document 01/19/22 09:43 [facility] (Rec: 01/19/22 12:18 [facility] [id number]) OT-Instrumental Activities of Daily Living Home Safety Awareness Home Safety Comments Pt has decreased short term memory and at this time if having to go home would be best for pt to have / assist. Meal Preparation Meal Preparation Caregiver Provides Assist Instrument Technician Helper Instrument Technician Helper Caregiver Provides Assist Driving Driving Caregiver Provides Assist M6 OT- IP Functional Cognition Start: 01/19/22 11:57 Freq: Status: Active Protocol: Document 01/20/22 13:50 [facility] (Rec: 01/20/22 14:01 [facility] [id number]) Cognitive Factors Limiting Selfcare Function Cognitive Ability Level of Alertness Alert Patient Orientation Name,Place,Situation Attention Span Ability Capable of Focused Attention, Capable of Sustained Attention Ability to Follow Commands Able to Follow One Step Commands with Increased Time, Able to Follow One Step Commands with Repetition Memory Description Short Term Impaired Safety Awareness Decreased Recall of Precautions,Decreased Ability to Apply Precautions, Underestimates Need for Assistance Cognitive Comments Cognitive Assessment Comments Pt needing step by step cues for safety awareness for transitions to stand, transfers, and FWW use. M7 OT- IP Mobility and Balance Start: 01/19/22 11:57 Freq: Status: Active Protocol: Document 01/20/22 13:50 [facility] (Rec: 01/20/22 14:01 [facility] [id number]) OT-Transfer Assessment Sit to and From Stand Sit to and from Stand Minimal Assistance,Moderate Assistance Transfers Transfer Ability Minimal Assistance Technique Transfer Destination Chair,Toilet Transfer Technique Stand Step Pivot Devices Transfer Assistive Devices Gait Belt,Front Wheeled Walker Comments Mobility Comments Pt able needing MODA to help scoot forwards and cued pt to weight shift to his right hip while trying to scoot his left side out, pt also needing assist from the sheet underneath him to help slide forwards. and then to weight shift on his left hip and scoot his right hip forwards. MIN/MODA to stand to the FWW. KAHLIL for balance while walking with the FWW. OT- Balance Assessment Sitting Balance and Reactions Static Sitting Balance Ability Good Dynamic Sitting Balance Ability Good Standing Balance and Reactions Static Standing Balance Ability Fair Dynamic Standing Balance Ability Poor M8 OT- IP Objective Assessments Start: 01/19/22 11:57 Freq: Status: Active Protocol: Document 01/19/22 09:43 [facility] (Rec: 01/19/22 12:18 [facility] [id number]) OT Gross Range of Motion Upper Extremity Range of Motion Assessment Left Impaired ROM Impairments Pt states has left shoulder pain which limits his AROM. OT-Muscle Tone Assessment Muscle Tone WNL Yes M9 OT- IP Assessment and Plan Start: 01/19/22 11:57 Freq: Status: Active Protocol: Document 01/20/22 13:50 [facility] (Rec: 01/20/22 14:01 [facility] [id number]) OT Summary Assessment and Plan Potential Rehabilitation Potential Good Analytic Complexity at Evaluation Low Summary OT Impairments Pain,Strength,Balance, Functional Cognition, Functional Mobility,Grooming, Dressing,Toileting,Bathing, Toilet Transfers,Shower Transfers,Activity Tolerance Progress Towards Goals Slow Progress due to Pain,Slow Progress due to Medical Issues,Slow Progress due to Activity Tolerance,Slow Progress due to Cognition Assessment Summary Pt not able to tolerate standing at the sink for oral care needs. Pt still needing at times MODA to stand to the FWW and extensive needs for LB dressing. Pt at this time would be too great of care for his to assist as she herself states has neuropathy. Pt would best benefit from skilled rehab prior to going home. Goals Grooming Goal Independent Dressing Goal Minimal Assistance Toileting Goal Independent Bathing Goal Minimal Assistance Toilet Transfer Goal Independent Shower Transfer Goal Independent Patient/Caregiver Education Goal Demonstrate Post-Op Precautions,Demonstrate Energy Conservation and Pacing Days to Meet Goals 15 Frequency of Treatment Frequency Of Treatment Once a Day Treatment Plan OT Treatment Plan ADL Training,Functional Cognition Training,Functional Mobility,Patient/Family Education,Discharge Planning Other Treatment Recommendations and Next Standing at the sink for Treatment Focus grooming/oral care needs. Discharge Recommendations OT Discharge Recommendations SNF Rehab Transportation Needs at Discharge Wheelchair/Cabulance
--- NOTE | 2022-01-20 15:00 | PT.IPTN ---
Current Diagnoses Spondylolisthesis, lumbar region (01/18/22) Chronic kidney disease, stage 4 (severe) (01/18/22) Other mechanical complication of other internal orthopedic devices, implants and grafts, initial encounter (01/18/22) Arthrodesis status (01/18/22) Surgery Performed Operation Date: 01/18/22 09:15 Actual Procedures p L3-4, L4-5, L5-S1 TLIF w. posterior instrumentation, L5-S1 HWR -Reji - Cherelle Angela MD Physical Therapy Treatment Note M2 PT-IP Current Condition Start: 01/19/22 11:42 Freq: NEEDED Status: Active Protocol: Document 01/19/22 08:50 AB (Rec: 01/19/22 11:52 AB [id number]) Physical Therapy Current Condition Current Condition Evaluation Date 01/19/22 Treatment Diagnosis s/p L3-S1 TLIF; difficulty in walking Onset Date 01/18/22 M3 PT-IP Subjective Start: 01/19/22 11:42 Freq: NEEDED Status: Active Protocol: Document 01/20/22 14:42 KS (Rec: 01/20/22 15:14 KS [id number]) Subjective Physical Therapy Visit Type Type Treatment Note Visit Start Time 14:42 Visit Stop Time 15:00 Total Visit Minutes 18 Notes Pts present Number of HOME DEMONSTRATION AGENT Visits 2 Physical Therapy Visit Comments Patient Comments pt agreeable to do PT Therapy Pain Assessment Pain When Pain Assessed During Mobility Pain Present Pain Present Pain Reported Location back Intensity 4 Scale Used Numeric (0 - 10) Description Stabbing Pain Behaviors Facial Grimacing,Guarding Pain Management Techniques Distraction,Modification of Treatment,Re-positioning, Timing of Activity with Medications M4 PT-IP Mobility and Gait Start: 01/19/22 11:42 Freq: NEEDED Status: Active Protocol: Document 01/20/22 14:42 KS (Rec: 01/20/22 15:14 KS [id number]) PT-Transfer Assessment Sit to and From Stand Sit to and from Stand Moderate Assistance,1 Person Assistance,Use of Upper Extremities Equipment Transfer Assistive Device Gait Belt,Front Wheeled Walker Orthotic/Prosthetic Devices or Brace: No Transfers Transfer Destination Chair,Toilet Transfer Technique pt ambulated Transfer Ability Level of Assist Minimal Assistance,Maximum Assistance,1 Person Assistance ,Use of Upper Extremities Comments Mobility Comments Pt in chair upon arrival and in room. did not have good carryover of how to provide assistance to pt w/ sit<>stand and required cues. Pt able to scoot EOC CGA w/ increased time. Mod A and cues for hand placement for sit<> stand w/ FWW (1 hand on FWW and 1 p/u from arm rest to avoid pt leaning backward). Pt then ambulated ~8 ft to toilet. Pts again needed cues on how to provide assist to pt for sit<>stand from toilet. He then ambulated additional 25 ft w/ FWW CGA. Pt w/ very quick approach to fatigue and unable to tolerate further ambulation and refused sit<>Stands this PM. Encouraged pt to continue ankle pumps while in his chair . Pt left in chair w/ alarm on and all needs in reach. Gait Assessment Gait Gait Assistance Required: Contact Guard Assist Distance (Feet) 25 Able to Maintain Weight Bearing Status Yes During Gait Assistive Devices Assistive Device Gait Belt,Front Wheeled Walker Orthotic/Prosthetic Devices or Brace: No Gait Deviations General Gait Pattern Decreased Stride Length, Decreased Feet Clearance Factors Limiting Gait Function Factors Limiting Gait Function Decreased Activity Tolerance, Decreased Strength,Pain,Poor Balance,Poor Safety Awareness Comments Gait Comments Please refer to mobility section for details. PT-Balance Assessment Sitting Balance and Reactions Static Sitting Balance Ability Good Dynamic Sitting Balance Ability Good Standing Balance and Reactions Static Standing Balance Ability Fair Dynamic Standing Balance Ability Fair Device Used FWW M5 PT-IP Objective Assessments Start: 01/19/22 11:42 Freq: NEEDED Status: Active Protocol: Document 01/19/22 08:50 AB (Rec: 01/19/22 11:52 AB [id number]) Orientation Orientation/Cognition Level of Alertness Alert Orientation Name,Place,Situation Language Function Ability No Deficits Noted Safety Awareness Decreased Safety Awareness Memory Description Short Term Impaired Gross Range of Motion Lower Extremity ROM Assessment Within Functional Limits Strength Comments Strength Comments LLE: 4-/5 RLE: 3+/5 Coordination Assessment Gross Coordination Gross Coordination WNL Muscle Tone Muscle Tone WNL Yes M6 PT-IP Treatment Start: 01/19/22 11:42 Freq: NEEDED Status: Active Protocol: Document 01/20/22 14:42 KS (Rec: 01/20/22 15:14 KS [id number]) Physical Therapy Treatment Exercises Exercises Ankle Pumps Education Education Provided Precautions,Safety Other Treatments Other Treatment Performed Discussed SNF - pt and agreeable. M7 PT-IP Assessment and Plan Start: 01/19/22 11:42 Freq: NEEDED Status: Active Protocol: Document 01/20/22 14:42 KS (Rec: 01/20/22 15:14 KS [id number]) PT Summary Assessment and Plan Potential Rehabilitation Potential Fair Summary Impairments Pain,ROM,Strength,Balance, Coordination,Sensation,Tone, Cognition,Bed Mobility, Transfers,Gait,Activity Tolerance Progress Towards Goals Slow Progress due to Pain,Slow Progress due to Activity Tolerance Assessment Summary Pt requiring Mod A for sit<> stand this PM and only able to tolerate ~25 ft ambulation w/ FWW. did not demonstrate good carryover from previous caregiver training and required frequent cues to safely assist pt. At this time , due to pts weakness and low actviity tolerance he will benefit from SNF to improve. and pt agreeable. If they do decide to go home, pt will need to improve mobility and ambulation and will need continued caregiver training. Goals Bed Mobility Goal Standby Assistance Transfer Goal Standby Assistance,Front Wheeled Walker Gait Goal Standby Assistance,Front Wheel Walker Gait Distance 150 Days to Meet Goals 5 Frequency of Treatment Frequency Of Treatment Twice a Day Treatment Plan Physical Therapy Treatment Plan Bed Mobility Training,Transfer Training,Gait Training, Therapeutic Exercise,Balance Retraining,Post Op Education, Discharge Planning,Hot or Cold Pack,Neuromuscular Re-ed, Coordination Retraining,Manual Therapy Precautions Lumbar Precautions Log Roll,No Twisting,Limit Bending,Lifting Restriction of 10 lbs,Gait Belt above Incisional Area Recommendations To Nursing Amount of Assist Needed 1 Person Assist Discharge Recommendations PT Discharge Recommendations Home with 11/02 Assist Available,Home Health,SNF Rehab Transportation Needs at Discharge Private Vehicle,Wheelchair/ Cabulance
[2022-01-20 17:30] VITALS: BP 148/95; PULSE 100; RESP 18; TEMP 37.1; O2SAT 96
[2022-01-20 17:37] VITALS: BP 148/95; PULSE 100
[2022-01-20] MEDS: METOPROLOL ER 25 MG TABLET PO (17:37)
[2022-01-20] MEDS: DUTASTERIDE 0.5 MG CAPSULE PO (17:38)
--- NOTE | 2022-01-20 19:01 | PC.NURSE ---
Pt up and down to the BR. quickly to sleep most of the day when not in the BR.. confused as to time of day. Makes feeling and needs easily known. attentive throughout the day. Dressing on back changed. Dressings on legs changed bilaterally.
[2022-01-20 20:30] VITALS: BP 168/88; PULSE 88; RESP 16; TEMP 36.6; O2SAT 96
[2022-01-20 21:00] VITALS: BP 168/88; PULSE 88
[2022-01-20] MEDS: SENNOSIDES 8.6 MG TABLET 17.2 MG PO (21:16)
[2022-01-20] MEDS: PRAVASTATIN 20 MG TABLET PO (21:16)
[2022-01-21 01:49] VITALS: BP 147/87; PULSE 86; RESP 19; TEMP 36.5; O2SAT 95
[2022-01-21 06:40] VITALS: BP 155/92; PULSE 72; RESP 19; TEMP 36.9; O2SAT 96
[2022-01-21 08:00] VITALS: BP 149/93; PULSE 84; RESP 14; TEMP 37; O2SAT 95
[2022-01-21] MEDS: OXYCODONE IR 5 MG TABLET PO (08:12)
[2022-01-21] MEDS: dexAMETHasone 1 MG TABLET 0.75 MG PO (08:12)
[2022-01-21] MEDS: DOCUSATE 100 MG CAPSULE PO (08:12)
--- NOTE | 2022-01-21 10:20 | P.DS_ITS ---
History of Present Illness History of Present Illness Date Patient Seen: 01/21/22 Time Patient Seen: 10:20 Chief complaint: TLIF Narrative: Operative Date/Time/Diagnoses Date of procedure: 01/18/22 Time of procedure: 10:40 Pre-op diagnosis: 1. L3-4, L4-5, L5-S1 spinal stenosis 2. Lumbar spondylolisthesis 3. History of L5-S1 fusion with pseudoarthrosis 4. Lumbar scoliosis Post-op diagnosis: same Procedure & Clinicians Procedure: 1. L3-4, L4-5, L5-S1 posterolateral and posterior interbody fusion 2. L3-4,L4-5, L5-S1 posterior interbody cage placement 3. L5-S1 posterior non-segmental instrumentation removal 4. L5-S1 revision laminectomy with exploration of fusion 5. L3-4, L4-5, L5-S1 posterior segmental instrumentation with pedicle screw placement 6. [place] of bone marrow from iliac crest through a separate incision 7. Utilization of microsurgical technique and operating microscope 8. Utizlization of robotic navigation (Scioderm) Same procedure as scheduled: Yes Indications: Patient has been having chronic back pain and worsening lumbar radiculopathy. Patient had previous L5-S1 laminectomy and fusion in 2017 and was confirmed to have a pseudoarthrosis at this level with recent imaging with no signs of fusion at this level. Patient failed multiple conservative management with worsening pain weakness and numbness in his lower extremity.? Patient has been having difficulty performing activity of daily living.? After discussing risks benefits of treatment options, patient elected proceed with surgery. Surgeon: Cherelle Angela Venetian Blind Tape Cutter: Bijal Lutz Click Yes if Unassisted: No Anesthesia Type: General Operative Notes Closure Type: primary Specimen(s): none sent Prosthetic devices, grafts, tissues, transplants, or devices: Globus CREO MIS screws, Rise cages Estimated Blood Loss (mL): 250 Discharge Providers Provider Date of admission: 01/18/22 07:47 Discharge Date: 01/21/22 Primary care physician: Milton Starkey MD Consults: 01/18/22 17:29 Consult to Occupational Therapy Evaluate & Treat Comment: Physician Instructions: Evaluate and treat Consult to Physical Therapy Evaluate & Treat Comment: Physician Instructions: Evaluate and Treat Consult to Physician Routine Comment: Consulting Provider: Morenita Lopez Reason for consultation: medical management with chronic renal insufficiency Has provider been notified: Yes Discharge provider: Bijal Lutz PA-C Summary Hospital Course Discharge Diagnosis: s/p lumbar fusion stage 4 CKD Hospital Course: Mr Dong's hospital course was unremarkable. The hospitalist service was consulted d/t his h/o stage 4 CKD, but upon review of pts home medications and labs, they felt he was at baseline and required no intervention. PT worked extensively with the patient and his spouse during his stay and felt he was most appropriate for discharge to SNF for further rehabilitation prior to returning home. On POD# 3 he was eating and voiding without difficulty, and his pain was well-controlled with oral medication. Complains of back pain, denies leg pain. Exam Vital Signs (past 8 hours): - 01/21/ 06:40 01/21/ 08:00 Temperature 98.4 F 98.6 F Pulse Rate 72 84 Respiratory Rate 19 14 Blood Pressure 155/92 H 149/93 H Pulse Oximetry 96 95 Oxygen Flow Rate 0 0 Oxygen Delivery Method Nasal Cannula Oxygen Flow Rate 0 Narrative Exam Narrative: 5/5 strength in quadriceps, hamstrings, DF, PF, EHL bilaterally. Sensation to light touch intact in BLE. Calves soft, compressible, nontender. Calves and feet remain edematous where not wrapped with compressive bandage. Objective Labs Result Diagrams: 01/19/22 06:47 01/19/22 06:47 [facility] Medical History (Updated 01/19/22 @ 10:13 by Bijal Lutz PA-C) Acid reflux Arthritis BPH (benign prostatic hyperplasia) Chronic kidney disease, stage 4 (severe) DJD (degenerative joint disease) Dyslipidemia Easy bruisability Eczema Enlarged prostate Hematuria HTN (hypertension) Hyperthyroidism Loosening of hardware in spine Lumbar radiculopathy Onychomycosis Postherpetic neuralgia Sciatic leg pain Shingles Shortness of breath Sinusitis Spinal stenosis Water retention Surgical History (Updated 01/19/22 @ 10:13 by Bijal Lutz PA-C) Hx of bilateral cataract extraction Hx of hernia repair (09/2015) Hx of laminectomy (~2011) Hx of tonsillectomy S/P lumbar spinal fusion (2016) [place] teeth extracted Family History (Updated 01/19/22 @ 05:02 by TAMANNA Mackey) Father Cancer Mother Congestive heart failure Social History household members: spouse Smoking Status: Former smoker alcohol intake: current Discharge Assessment & Plan Assessment and Plan Assessment: s/p lumbar fusion stage 4 CKD Plan of Treatment: Discharge to SNF for continued PT/OT. Oxycodone and cyclobenzaprine for pain. F/u w/ our office in 2 weeks as scheduled. Discharge Plan Discharge Plan Patient Disposition: SNF Transfer to: [facility] Discharge orders & Medications Prescriptions: New acetaminophen 325 mg Tablet 650 mg PO Q6HR PRN (Reason: Pain, Mild (1-3)) Qty: 240 0RF docusate sodium 100 mg Capsule 100 mg PO BID PRN (Reason: constipation) Qty: 60 2RF cyclobenzaprine 10 mg Tablet 10 mg PO Q8HR PRN (Reason: Spasms) Qty: 60 0RF oxycodone 5 mg tablet 5 mg PO Q4H PRN (Reason: pain, moderate) Qty: 60 0RF Rx Instructions: 1-2 tabs q 4 hrs PRN moderate-severe pain Continued furosemide 80 mg Tablet 80 mg PO BID Label Comments: Takes one qam, one after lunch hydroxyzine HCl 25 mg Tablet 25 mg PO BID pravastatin 20 mg Tablet 20 mg PO BEDTIME zolpidem 5 mg Tablet 5 mg PO BEDTIME PRN (Reason: Sleep) metoprolol succinate 25 mg Tablet Extended Release 24 Hr 25 mg PO QPM oxycodone 5 mg Tablet 5 mg PO TID PRN (Reason: Pain) dutasteride [Avodart] 0.5 mg Capsule 0.5 mg PO QPM alfuzosin 10 mg Tablet Extended Release 24 Hr 10 mg PO QPM Rx Instructions: administer after the same meal each day metolazone 2.5 mg Tablet 2.5 mg PO DAILY PRN (Reason: Increased swellling-only for 3 days) potassium 99 mg Tablet 99 mg PO DAILY dexamethasone 0.75 mg Tablet 0.75 mg PO BID Follow up/Referrals: Milton Starkey MD [Primary Care Provider] - Cherelle Angela MD [Physician] - As previously scheduled (Follow up with Shanice Bird PA-C, on 02/02/2022 @ 1:[address] in [place].) Sal Mcginnis MD [Non-Staff] - Diet/Activity/Treatments Diet: Diet as Tolerated Food texture: Regular Skin/Wound/Dressing Care Dressing: Keep incisions covered with dry gauze and non-occlusive tape. May shower - keep incisions as dry as possible. No bathing or otherwise soaking in cisions. Do not apply any creams, lotions, or ointments to incisions. [facility] Rehab type: Physical therapy and Occupational therapy Visit Report/Discharge Packet Instructions: DI for Prescription Opioid Use, DI for Transforaminal Lumbar Interbody Fusion Stand Alone Forms: Surgery Discharge Discharge Data Primary Care Provider: Milton Starkey VTE Deep Vein Thrombosis/Pulmonary Embolism Present on Admission: No
--- NOTE | 2022-01-21 11:05 | CM.DPC ---
DCP Cont: Per MD, pt medically stable for discharge. Pt is to discharge to [facility] @ 1200. Covid swab ordered and pending. DCP faxed orders, d/c summary, med list, rx's, and PASRR. Teri Bragg RN/DCP
--- NOTE | 2022-01-21 11:10 | PT-IP ANOTE ---
Pt to discharge to [facility] today at noon. Pt allowed to rest in anticipation of transfer.
[2022-01-21 11:32] LABS: COVID19 -Nasal RAPID Negative (Negative)
--- NOTE | 2022-01-21 14:04 | PC.NURSE ---
12:15 Pt dressed and ready for discharge to be transported to [facility] via facility transportation with log driver and spouse. Pt IV removed and no tele. Pt denies having anything kept at the pharmacy or in the safe. Discharge instructions printed and sent with [facility] facility member. Pt taken out via wheelchair by CRYSTAL[employer]ER OPERATOR with all belongings.
== END 2022-01-21 12:15 | DRG 454 ==
PROVIDERS: Nurse Practitioner Family; Admitting Provider Orthopaedic Surgery Orthopaedic Surgery of the Spine; PCP Family Medicine; Referring Provider Orthopaedic Surgery Orthopaedic Surgery of the Spine; Visit Provider Orthopaedic Surgery Orthopaedic Surgery of the Spine
PROC: 0SG10AJ Fusion of 2 or more Lumbar Vertebral Joints with Interbody Fusion Device, Posterior Approach, Anterior Column, Open Approach (ICD-10-PCS; principal; 2022-01-18 09:15)
DX: T84.038A Mechanical loosening of other internal prosthetic joint, initial encounter (principal); M96.0 Pseudarthrosis after fusion or arthrodesis; N18.4 Chronic kidney disease, stage 4 (severe); M43.16 Spondylolisthesis, lumbar region; M48.061 Spinal stenosis, lumbar region without neurogenic claudication; M48.07 Spinal stenosis, lumbosacral region; M41.86 Other forms of scoliosis, lumbar region; M96.1 Postlaminectomy syndrome, not elsewhere classified; I12.9 Hypertensive chronic kidney disease with stage 1 through stage 4 chronic kidney disease, or unspecified chronic kidney disease; E78.5 Hyperlipidemia, unspecified; N40.0 Benign prostatic hyperplasia without lower urinary tract symptoms; Z87.891 Personal history of nicotine dependence; Z20.822 Contact with and (suspected) exposure to COVID-19; Z98.1 Arthrodesis status
CPT/HCPCS: 36415; 72100; 76000; 80048; 80053; 83735; 83880; 85014; 85018; 85025; 87635; 97161; 97165; 97530; 97535; C1776; C9803; U0003; U0005; C9290; J0131; J0171; J0330; J0690; J1100; J1170; J2060; J2250; J2405; J2704; J3010; J3410

== ENCOUNTER → 2022-02-15 13:58 | Outpatient (CLI) | payer MEDICARE, OTHER, SELFPAY ==
[2022-01-18 17:30] VITALS: BMI 29.6
[2022-02-15 14:30] LABS: Add Manual Diff / Slide Review NO; Basophils Absolute Auto 0 /uL (0-100); Basophils Percent Auto 0.6 % (0-2); Eosinophils Absolute Auto 100 /uL (0-450); Eosinophils Percent Auto 1.2 % (2-4); Hematocrit 31.3 % (41-53); Hemoglobin 10.5 g/dL (13.5-17.5); Lymphocytes Absolute Auto 800 /uL (1100-4500); Lymphocytes Percent Auto 11.4 % (25-40); Mean Corpuscular HGB Conc 33.7 % (30-36); Mean Corpuscular Hemoglobin 30.6 PG (26-34); Mean Corpuscular Volume 90.7 fL (80-100); Monocytes Absolute Auto 700 /uL (0-900); Monocytes Percent Auto 9.9 % (3-14); Neutrophils Absolute Auto 5600 /uL (1500-7000); Neutrophils Percent Auto 76.9 % (50-75); Platelet Count 311 X10^3/uL (150-400); Red Blood Cell Count 3.45 X10^6/uL (4.5-5.9); Red Cell Distribution Width 14.1 % (11.6-14.8); White Blood Cell Count 7.3 X10^3/uL (4.5-11.0)
[2022-02-15 14:56] LABS: Albumin 3.8 g/dL (3.5-5.0); BUN Creatinine Ratio 30.8 (6-22); Blood Urea Nitrogen 92 mg/dL (9-20); Calcium 9.6 mg/dL (8.4-10.2); Carbon Dioxide 34 mmol/L (22-32); Chloride 92 mmol/L (98-107); Estimated Glomerular Filt Rate 21 mL/min (>60); Glucose 99 mg/dL (80-110); HEMOLYSIS < 15 (0-50); Phosphorous 4.2 mg/dL (2.3-3.7); Potassium 3.6 mmol/L (3.4-5.1); Sodium 136 mmol/L (137-145)
== END ==
PROVIDERS: PCP Family Medicine; Referring Provider Internal Medicine Nephrology; Visit Provider Internal Medicine Nephrology
DX: N18.4 Chronic kidney disease, stage 4 (severe) (principal)
CPT/HCPCS: 36415; 80069; 85025